=== PATIENT | female | born 2000 | race Two or more races ===

== ENCOUNTER 2020-04-18 01:15 | Emergency (ER) | payer OTHER, MEDICAID ==
[2020-04-18] MEDS ORDERED: ONDANSETRON 4 MG/2 ML VIAL IVP STA (02:38)
[2020-04-18] MEDS ORDERED: SODIUM CHLORIDE 0.9% 1,000 ML IV STA (02:38)
[2020-04-18 03:08] LABS: MUDS CUTOFF CONCENTRATIONS CUTOFF CONC BELOW:
[2020-04-18 03:11] LABS: BILIRUBIN,URINE NEGATIVE (NEGATIVE); GLUCOSE, URINE (UA) NEGATIVE (NEGATIVE); KETONES,URINE (UA) NEGATIVE (NEGATIVE); LEUKOCYTE ESTERASE, URINE NEGATIVE (NEGATIVE); NITRITE,URINE NEGATIVE (NEGATIVE); OCCULT BLOOD,URINE NEGATIVE (NEGATIVE); PH,URINE 8.5 PH (5.0-7.5); PROTEIN,URINE NEGATIVE (NEGATIVE); UROBILINOGEN,URINE 0.2 (NORMAL) E.U./dL (NORMAL)
[2020-04-18 03:13] LABS: CLARITY,URINE CLEAR (CLEAR)
[2020-04-18 03:23] LABS: AMPHETAMINE SCREEN,URINE NEGATIVE (NEGATIVE); COCAINE SCREEN URINE NEGATIVE (NEGATIVE); METHAMPHETAMINES SCREEN, URINE NEGATIVE (NEGATIVE); OPIATE SCREEN, URINE NEGATIVE (NEGATIVE)
[2020-04-18 03:24] LABS: BENZODIAZEPINES SCREEN, URINE POSITIVE (NEGATIVE); METHADONE SCREEN, URINE NEGATIVE (NEGATIVE); OXYCODONE SCREEN, URINE NEGATIVE (NEGATIVE); PROPOXYPHENE SCREEN, URINE NEGATIVE (NEGATIVE); TRICYCLIC ANTIDEPRESSANT,URINE NEGATIVE (NEGATIVE)
[2020-04-18 03:32] LABS: BASOPHILS % (AUTO) 0.2 %; EOSINOPHILS % (AUTO) 0.3 %; HGB - HEMOGLOBIN 13.5 g/dL (12.0-16.0); LYMPHOCYTES # (AUTO) 0.9 10^3/uL (1.5-3.5); LYMPHOCYTES % (AUTO) 7.9 %; MEAN CORPUSCULAR HEMOGLOBIN 31.7 pg (27.0-31.0); MEAN CORPUSCULAR HGB CONC 33.3 g/dL (32.0-36.0); MEAN CORPUSCULAR VOLUME 95.1 fL (81.0-99.0); MEAN PLATELET VOLUME 10.7 fL (7.9-10.8); MONOCYTES # (AUTO) 0.2 10^3/uL (0.0-1.0); MONOCYTES % (AUTO) 1.4 %; NEUTROPHILS # (AUTO) 10.2 10^3/uL (1.5-6.6); PLT - PLATELET COUNT 471 10^3/uL (130-450); RED BLOOD COUNT 4.26 10^6/uL (4.20-5.40); RED CELL DISTRIBUTION WIDTH 12.4 % (12.0-15.0); WHITE BLOOD COUNT 11.3 x10^3/uL (4.8-10.8)
[2020-04-18] MEDS ORDERED: IOVERSOL 320 100 ML VIAL IVP ONE ×2 (04:09→06:38)
--- NOTE | 2020-04-18 05:21 | ED Physician Documentation ---
History of Present Illness - Stated complaint Stated Complaint: VOMITING - Chief complaint Chief Complaint: Abd Pain - Additonal information Additional information: The patient presents accompanied by her mother. She has a history of cerebral palsy. She is nonverbal. Additionally, she has a history of a feeding tube. This is used on a daily basis. However, today after her father fed her she developed vomiting and was bringing up the tube feed that she had received. Her mother also feels that her abdomen is mildly distended. Her bowel movements have been normal and her last one was yesterday. The stool is nonbloody without tar-like parents. She also has a history of a SCREEN TENDER shunt and seizures. She seizes most days but mom says that these are typically brief. 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 Derm: None - Past Surgical History Past Surgical History: Yes General: Other Ortho: Spine surgery Neuro: SCREEN TENDER shunt - Present Medications Home Medications: Ambulatory Orders Medication Instructions Recorded Confirmed Baclofen 20 gm MC TID 06/14/13 06/14/13 Bisacodyl [Dulcolax] 10 mg 06/14/13 06/14/13 Cholecalciferol (Vitamin D3) 1,000 unit PO DAILY 06/14/13 06/14/13 [Vitamin D] Lamotrigine 150 mg PO BID 06/14/13 04/18/20 Levetiracetam [Keppra] 800 mg PO BID 06/14/13 04/18/20 Magnesium Hydroxide [Milk of 15 ml PO 06/14/13 06/14/13 Magnesia] Pedi Mv No.68/Iron Carbonyl 1 each PO 06/14/13 06/14/13 [Centrum Kids Chew Tab] Calcium Carbonate 1,000 mg GT DAILY 04/18/20 04/18/20 Multivit-Min/Ferrous Gluconate 15 ml PO DAILY 04/18/20 04/18/20 [Centrum Multivit-Mineral Liq] Topiramate [Topamax] 50 mg PO BID 04/18/20 04/18/20 diazePAM [Valium] 3 mg GT BID 04/18/20 04/18/20 - Allergies Allergies/Adverse Reactions: Allergies Allergy/AdvReac Type Severity Reaction Status Date / Time amoxicillin [Amoxicillin] Allergy Intermediate Rash Verified 04/18/20 01:37 polyethylene glycol 3350 * AdvReac Severe distended Verified 04/18/20 01:37 [From Miralax] abd - Social History Does the pt smoke?: No Smoking Status: Never smoker Does the pt drink ETOH?: No Does the pt have substance abuse?: No - Immunizations Immunizations are current?: Yes - POLST Patient has POLST: No PD ED PE NORMAL - Vitals Vital signs reviewed: Yes - HEENT HEENT: Moist mucous membranes - Cardiac Cardiac: RRR, No murmur, No gallop, No rub - Abdomen Abdomen: Soft, No organomegaly, Other (Distention, mild diffuse tenderness, hyperactive bowel sounds. Left abdominal PEG tube in place.) - Free text exam Free text exam: Diffuse upper and lower extremity contractures. Results - Vitals Vitals: Vital Signs - 24 hr 04/18/20 04/18/20 04/18/20 01:34 02:13 02:29 Temperature 36.0 C L 36 C L Heart Rate 96 110 H 96 Respiratory 20 20 20 Rate Blood Pressure 114/78 139/88 H 114/78 O2 Saturation 95 90 L 95 04/18/20 04/18/20 04/18/20 04:01 06:00 07:50 Temperature 36.7 C 36.1 C L Heart Rate 103 H 115 H 112 H Respiratory 18 Rate Blood Pressure 130/88 H 112/53 L 121/81 H O2 Saturation 95 99 96 04/18/20 04/18/20 09:00 10:11 Temperature 36.8 C 36.4 C L Heart Rate 115 H 118 H Respiratory 18 18 Rate Blood Pressure 116/80 114/84 H O2 Saturation 96 97 Oxygen O2 Source Room air - Labs Labs: Laboratory Tests 04/18/20 04/18/20 04/18/20 03:04 03:20 03:20 WBC 11.3 H RBC 4.26 Hgb 13.5 Hct 40.5 MCV 95.1 MCH 31.7 H MCHC 33.3 RDW 12.4 Plt Count 471 H MPV 10.7 Neut # (Auto) 10.2 H Lymph # (Auto) 0.9 L Nobles # (Auto) 0.2 Eos # (Auto) 0.0 Baso # (Auto) 0.0 Absolute Nucleated RBC 0.00 Nucleated RBC % 0.0 Sodium Potassium Chloride Carbon Dioxide Anion Gap BUN Creatinine Estimated GFR (MDRD) Glucose Lactic Acid 1.7 Calcium Total Bilirubin AST ALT Alkaline Phosphatase Total Protein Albumin Globulin Albumin/Globulin Ratio Lipase Serum HCG, Qual Urine Color YELLOW Urine Clarity CLEAR Urine pH 8.5 H Ur Specific Carney 1.010 Urine Protein NEGATIVE Urine Glucose (UA) NEGATIVE Urine Ketones NEGATIVE Urine Occult Blood NEGATIVE Urine Nitrite NEGATIVE Urine Bilirubin NEGATIVE Urine Urobilinogen 0.2 (NORMAL) Ur Leukocyte Esterase NEGATIVE Ur Microscopic Review NOT INDICATED Urine Culture Comments NOT INDICATED Urine Opiates Screen NEGATIVE Ur Oxycodone Screen NEGATIVE Urine Methadone Screen NEGATIVE Ur Propoxyphene Screen NEGATIVE Ur Barbiturates Screen NEGATIVE Ur Tricyclics Screen NEGATIVE Ur Phencyclidine Scrn NEGATIVE Ur Amphetamine Screen NEGATIVE U Methamphetamines Scrn NEGATIVE U Benzodiazepines Scrn POSITIVE H Urine Cocaine Screen NEGATIVE U Cannabinoids Screen NEGATIVE 04/18/20 04/18/20 06:51 06:51 WBC RBC Hgb Hct MCV MCH MCHC RDW Plt Count MPV Neut # (Auto) Lymph # (Auto) Nobles # (Auto) Eos # (Auto) Baso # (Auto) Absolute Nucleated RBC Nucleated RBC % Sodium 137 Potassium 4.5 Chloride 110 Carbon Dioxide 16 L Anion Gap 11.0 BUN 7 Creatinine 0.4 Estimated GFR (MDRD) 203 Glucose 135 H Lactic Acid Calcium 8.4 L Total Bilirubin 1.0 AST 49 H ALT 22 Alkaline Phosphatase 94 Total Protein 7.1 Albumin 3.7 Globulin 3.4 Albumin/Globulin Ratio 1.1 Lipase 19 L Serum HCG, Qual NEGATIVE Urine Color Urine Clarity Urine pH Ur Specific Carney Urine Protein Urine Glucose (UA) Urine Ketones Urine Occult Blood Urine Nitrite Urine Bilirubin Urine Urobilinogen Ur Leukocyte Esterase Ur Microscopic Review Urine Culture Comments Urine Opiates Screen Ur Oxycodone Screen Urine Methadone Screen Ur Propoxyphene Screen Ur Barbiturates Screen Ur Tricyclics Screen Ur Phencyclidine Scrn Ur Amphetamine Screen U Methamphetamines Scrn U Benzodiazepines Scrn Urine Cocaine Screen U Cannabinoids Screen PD MEDICAL DECISION MAKING - ED course Complexity details: re-evaluated patient, considered differential, d/w patient ED course: As noted, the patient has a complicated history. Nursing staff were able to obtain IV access but not all of the lab work. Therefore, after discussing the potential benefits and risks with her mother, she provided consent for me to perform a blood draw from the patient's femoral vein. The area was prepped and draped in a sterile fashion and local analgesia was obtained with the use of lidocaine without epinephrine. I then obtained approximately 10 cc of blood and the samples were sent. I discussed her case at change of shift with the oncoming physician, Dr. Titus. We reviewed the patient's history, examination findings and the results of her imaging studies. He will follow-up on the results of her pending blood work and will arrange a disposition for her. Departure - Departure Disposition: 01 Home, Self Care Clinical Impression: SCREEN TENDER (ventriculoperitoneal) shunt status, Seizure Vomiting Qualifiers: Vomiting type: unspecified Vomiting Intractability: non-intractable Nausea presence: unspecified Qualified Code(s): R11.10 - Vomiting, unspecified Aspiration into lower respiratory tract Qualifiers: Encounter type: initial encounter Qualified Code(s): T17.800A - Unspecified foreign body in other parts of respiratory tract causing asphyxiation, initial encounter Condition: Good Instructions: ED Nausea Vomiting Comments: The cause of her episode last night is unclear. No specific cause for vomiting was found. It appears that the SCREEN TENDER shunt is operating normally. There was some aspiration into her lungs but not much. Monitor her for signs of infection such as increased cough or fever and return if that happens. Also return if she starts vomiting again. Discharge Date/Time: 04/18/20 10:23
[2020-04-18] MEDS ORDERED: LIDOCAINE 2% 50 ML MDV SUBQ STA (06:21)
[2020-04-18] MEDS ORDERED: BUFFERED LIDOCAINE 10 ML SYRINGE SUBQ STA (06:28)
[2020-04-18] MEDS ORDERED: LIDOCAINE 2% 50 ML MDV SUBQ SCH (07:00)
--- NOTE | 2020-04-18 07:32 | ED Physician Documentation ---
ED Addendum - Addendum Addendum: 04/18/20 07:31 Patient received in signout from Dr. Vasquez at 7 AM. Briefly this is a 19-year-old woman with history of cerebral palsy, DEPUTY COURT shunt and seizures. Started vomiting yesterday. May have vomited up a dose of her antiseizure medicine. Mom notes longer seizures than normal since this all started. Imaging reviewed. CT of the head, chest, abdomen, only pertinent positive finding is potential aspiration pneumonitis. Some labs still pending on signout. 04/18/20 10:08 Chemistries notable for nonanion gap acidosis, otherwise unremarkable. Mom did a tube feeding and we waited for a while, there was no further vomiting. She seemed to tolerate it well and mom was comfortable taking her home. Diagnoses: 1. Vomiting 2. Aspiration into the lungs 3. Seizure disorder 4. DEPUTY COURT shunt in place Disposition Home with mother, condition stable
[2020-04-18 07:43] LABS: HCG,QUALITATIVE BLOOD NEGATIVE
[2020-04-18 07:44] LABS: ALBUMIN 3.7 g/dL (3.2-5.5); ALBUMIN/GLOBULIN RATIO 1.1 (1.0-2.2); CALCIUM 8.4 mg/dL (8.5-10.3); CREATININE 0.4 mg/dL (0.4-1.0); TOTAL PROTEIN 7.1 g/dL (6.7-8.2)
[2020-04-18 10:11] VITALS: BP 114/84
--- NOTE | 2020-04-18 13:36 | CT Report ---
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 For r adiation dose reduction, the following was used: automated exposure control, adjustment of mA and/or kV according to patient size. COMPARISON: Correlation is made with the accompanying chest and abdomen and pelvis CT examinations, 04/18/2020. FINDINGS: Image quality: Excellent. CSF spaces: There is a left frontal approach ventriculostomy shunt catheter seen, with the tip seen n ear the midline of the ventricles. The ventricles are enlarged. 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 No midline shift. No intracranial masses or hemorrhage. Gusman-white matter interface is nor mal. Skull and face: Right-sided craniectomy changes are seen. Calvarium and visualized facial bones othe rwise appear intact, without suspicious lesions. Sinuses: Visualized sinuses and mastoids are clear. IMPRESSION: Enlarged lateral ventricles. Although shunt dysfunction is possible, underlying ex vacuo dilatation i s considered to be more likely. Please note that no prior head CTs are available for review at this t devi of this dictation and it is not known what the patient's baseline state is. If clinically appropriate, please consider a short-term follow-up noncontrasted CT examination. There is a left frontal approach ventriculostomy catheter seen, with the tip seen along the midline o f the lateral ventricles. Extensive remote appearing infarctions are seen involving both posterior cerebral hemispheres. Note: No significant discrepancy from the preliminary report. Reviewed by: Rafael Muir MD on 04/18/2020 12:34 PM KD Approved by: Rafael Muir MD on 04/18/2020 12:34 PM KD Station ID: [id number]
--- NOTE | 2020-04-18 13:41 | CT Report ---
PROCEDURE: Abdomen/Pelvis W INDICATIONS: vomiting vp clinical shunt CONTRAST: IV CONTRAST: Optiray 320 ml: 70 PO CONTRAST: *NO PO CONTRAST TECHNIQUE: After the administration of nonionic IV contrast, 5 mm thick sections acquired from the diaphragms to the symphysis. 5 mm thick coronal and sagittal reformats were acquired. For radiation dose reducti on, the following was used: automated exposure control, adjustment of mA and/or kV according to gladys ent size. COMPARISON: Correlation is made with the accompanying head CT and chest CT, 04/18/2020 FINDINGS: Image quality: There is artifact associated with the metallic hardware. ABDOMEN: Lung bases: Dependent consolidations are seen. Heart size is normal. Solid organs: Liver and spleen are normal in size and enhancement. Gallbladder wall does not appear thickened. Biliary system is non dilated. Pancreas enhances normally. No adrenal nodules. Kidn eys demonstrate normal size and enhancement, without hydronephrosis. Peritoneum and bowel: A percutaneous gastrostomy tube is seen. Bowel loops demonstrate normal wall t hickness and caliber. No free air. Mild to moderate free fluid is seen collecting within the right lower quadrant of the abdomen. Nodes and vessels: No retroperitoneal or mesenteric adenopathy by size criteria. Aorta and inferior vena cava are normal in size. Miscellaneous: No ventral hernias. There is a ventriculostomy catheter tube seen, with the tip coil ed on the left side and terminating within the left upper quadrant, near the left kidney, as on serie s 4 image 24. No abnormality of the tube can be seen. No tami kink or discontinuity can be seen. PELVIS: Genitourinary: Bladder wall thickness is normal. An IUD is seen at the expected location. Miscellaneous: No inguinal hernias or adenopathy. Bones: No suspicious bony lesions. No vertebral body compression fractures. Extensive spinal fixat ion hardware is seen. There is moderate levoconvex thoracolumbar scoliosis. IMPRESSION: Ventriculostomy peritoneal shunt catheter tubing is seen, with the tip within the left upper quadrant of the abdomen. No tami abnormality of the tube can be seen. There is mild to moderate free fluid seen collected within the right lower quadrant of the abdomen. Incidental note is made of: Extensive spinal fixation hardware Levoconvex scoliosis Gastrostomy IUD Note: No significant discrepancy from the preliminary report. Reviewed by: Rafael Muir MD on 04/18/2020 12:39 PM KD Approved by: Rafael Muir MD on 04/18/2020 12:39 PM [facility] Station ID: [id number]
--- NOTE | 2020-04-18 13:44 | CT Report ---
PROCEDURE: CHEST W INDICATIONS: vomiting TEST ARCHITECT shunt CONTRAST: IV CONTRAST: Optiray 320 ml: 70 PO CONTRAST: *NO PO CONTRAST TECHNIQUE: After the administration of intravenous contrast, 5 mm thick sections acquired from the pulmonary api sonia to the posterior costophrenic angles. 7 mm thick coronal MIP reformats were acquired. For radia tion dose reduction, the following was used: automated exposure control, adjustment of mA and/or kV according to patient size. COMPARISON: Correlation is made with the accompanying head CT and abdomen and pelvis CT, 04/18/2020. FINDINGS: Image quality: Excellent. Lungs and pleura: Dependent consolidation can be seen. An azygos lobe is incidentally noted. No pleur al effusions or pneumothorax. Central and peripheral airways are patent and normal in caliber. Mediastinum: Heart size is normal. No pericardial effusion. No mediastinal or hilar adenopathy by size criteria. Thoracic aorta and central pulmonary arteries are normal in size. Esophagus is elsie l in caliber. No hiatal hernia. Bones and chest wall: Ventriculoperitoneal shunt catheter tubing is seen anteriorly and on the left. No discontinuities of the tubing can be seen. Extensive spinal fixation hardware is seen. Levoconvex scoliosis is seen. No suspicious bony lesions. No vertebral body compression fractures. No axillary or supraclavicular adenopathy by size criteri a. Thyroid gland demonstrates no significant CT abnormality. Abdomen: Visualized upper abdominal solid organs appear normal. Upper abdominal bowel loops are nor mal in caliber. IMPRESSION: Dependent consolidation of the lungs can be seen. Bilateral dependent infiltrates are suspected. Aleman ant, differential diagnosis would also include atelectasis. Please correlate with clinical status. No abnormality of the TEST ARCHITECT shunt tubing can be seen. Incidental note is made of: Extensive spinal fixation hardware Levoconvex scoliosis Azygos lobe Note: No significant discrepancy from the preliminary report. Reviewed by: Rafael Muir MD on 04/18/2020 12:43 PM KD Approved by: Rafael Muir MD on 04/18/2020 12:43 PM [facility] Station ID: [id number]
--- NOTE | 2020-04-19 12:57 | ED Physician Documentation ---
ED Addendum - Addendum Addendum: 04/19/20 12:56 Blood culture noted, I spoke with mom. The patient is doing very well today, "back to normal." No fevers. At this point given 1 of 2 blood cultures positive for gram-positive cocci and no fever it is likely a contaminant and mom is comfortable watching her at home. Understands the need to return immediately if worsening or if she runs a fever. Otherwise we will follow the culture.
== END 2020-04-18 10:23 | disposition home or self-care (01) ==
LOC: ED 01:15
DX: R11.10 Vomiting, unspecified (principal); T17.820A Food in other parts of respiratory tract causing asphyxiation, initial encounter; X58.XXXA Exposure to other specified factors, initial encounter; E87.2 Acidosis; G80.9 Cerebral palsy, unspecified; G40.909 Epilepsy, unspecified, not intractable, without status epilepticus; Z98.2 Presence of cerebrospinal fluid drainage device; Z93.1 Gastrostomy status
CPT/HCPCS: 36415; 51701; 70450; 71260; 74177; 80053; 80306; 81003; 83605; 83690; 84703; 85025; 87040; 87077; 96374; 99281; 99284; Q9967; 81001; 87086

== ENCOUNTER 2022-11-18 17:03 | Emergency (ER) | payer MEDICAID, OTHER ==
[2022-11-18 17:37] LABS: BASOPHILS % (AUTO) 0.2 %; HCT - HEMATOCRIT 49.9 % (37.0-47.0); HGB - HEMOGLOBIN 17.3 g/dL (12.0-16.0); LYMPHOCYTES # (AUTO) 1.4 10^3/uL (1.5-3.5); LYMPHOCYTES % (AUTO) 7.5 %; MEAN CORPUSCULAR HEMOGLOBIN 32.3 pg (27.0-31.0); MEAN CORPUSCULAR HGB CONC 34.7 g/dL (32.0-36.0); MEAN CORPUSCULAR VOLUME 93.3 fL (81.0-99.0); MEAN PLATELET VOLUME 10.4 fL (7.9-10.8); MONOCYTES % (AUTO) 5.1 %; NEUTROPHILS # (AUTO) 16.3 10^3/uL (1.5-6.6); NEUTROPHILS % (AUTO) 86.9 %; PLT - PLATELET COUNT 386 10^3/uL (130-450); RED BLOOD COUNT 5.35 10^6/uL (4.20-5.40); RED CELL DISTRIBUTION WIDTH 11.4 % (12.0-15.0); WHITE BLOOD COUNT 18.7 x10^3/uL (4.8-10.8)
[2022-11-18 17:50] LABS: ALBUMIN 4.1 g/dL (3.2-5.5); ALBUMIN/GLOBULIN RATIO 0.9 (1.0-2.2); BILIRUBIN,TOTAL 0.6 mg/dL (0.2-1.0); CALCIUM 9.4 mg/dL (8.5-10.3); CREATININE 0.6 mg/dL (0.4-1.0); POTASSIUM 3.9 mmol/L (3.5-5.0); TOTAL PROTEIN 8.5 g/dL (6.7-8.2)
[2022-11-18] MEDS ORDERED: ONDANSETRON 4 MG/2 ML VIAL IVP STA (17:51)
[2022-11-18] MEDS ORDERED: SODIUM CHLORIDE 0.9% 1,000 ML IV STA (17:51)
--- NOTE | 2022-11-18 17:51 | ED Physician Documentation ---
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 The patient has vomited her tube feeds since yesterday evening. She has done this in the past and they typically switch over to Pedialyte for a day or 2 and she improved but she is not even tolerating Pedialyte today. She does not appear to be in any pain, has not had a fever or chills, and has remained at baseline mentation and activity. She has not had any diarrhea. She last urinated around 2 AM, no other urination today. No known sick contacts, no atypical p.o. intake. 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 Derm: None Other Past Medical History: Cerebral palsy, METAL TECHNICIAN shunt - Past Surgical History Past Surgical History: Yes General: Other Ortho: Spine surgery Neuro: METAL TECHNICIAN shunt - Present Medications Home Medications: Ambulatory Orders Medication Instructions Recorded Confirmed Baclofen 20 gm MC TID 06/14/13 06/14/13 Bisacodyl [Dulcolax] 10 mg 06/14/13 06/14/13 Cholecalciferol (Vitamin D3) 1,000 unit PO DAILY 06/14/13 06/14/13 [Vitamin D] Lamotrigine 150 mg PO BID 06/14/13 04/18/20 Levetiracetam [Keppra] 800 mg PO BID 06/14/13 04/18/20 Magnesium Hydroxide [Milk of 15 ml PO 06/14/13 06/14/13 Magnesia] Pedi Mv No.68/Iron Carbonyl 1 each PO 06/14/13 06/14/13 [Centrum Kids Chew Tab] Calcium Carbonate 1,000 mg GT DAILY 04/18/20 04/18/20 Multivit-Min/Ferrous Gluconate 15 ml PO DAILY 04/18/20 04/18/20 [Centrum Multivit-Mineral Liq] Topiramate [Topamax] 50 mg PO BID 04/18/20 04/18/20 diazePAM [Valium] 3 mg GT BID 04/18/20 04/18/20 Ondansetron Odt [Zofran] 4 mg TL Q6H PRN #20 tablet 11/18/22 Tamsulosin [Flomax] 0.4 mg PO DAILY #30 cap 11/18/22 - Allergies Allergies/Adverse Reactions: Allergies Allergy/AdvReac Type Severity Reaction Status Date / Time amoxicillin [Amoxicillin] Allergy Intermediate Rash Verified 11/18/22 17:14 polyethylene glycol 3350 * AdvReac Severe distended Verified 11/18/22 17:14 [From Miralax] abd - Social History Does the pt smoke?: No Smoking Status: Never smoker Does the pt drink ETOH?: No Does the pt have substance abuse?: No - Immunizations Immunizations are current?: Yes - POLST Patient has POLST: No PD ED PE NORMAL - Vitals Vital signs reviewed: Yes - General General: No acute distress, Well developed/nourished, Other (Patient nonverbal but is smiling, does not appear toxic or in distress.) - HEENT HEENT: Moist mucous membranes, Pharynx benign - Neck Neck: Supple, no meningeal sign, No JVD - Cardiac Cardiac: RRR, No murmur, No gallop, No rub - Respiratory Respiratory: No respiratory distress, Clear bilaterally - Abdomen Abdomen: Normal bowel sounds, Soft, Non tender, Non distended - Derm Derm: Normal color, Warm and dry, No rash Results - Vitals Vitals: Vital Signs - 24 hr 11/18/22 17:11 Temperature 36.2 C L Heart Rate 108 H Respiratory 24 Rate Blood Pressure 135/72 H O2 Saturation 95 Oxygen O2 Source Room air - Labs Labs: Laboratory Tests 11/18/22 11/18/22 11/18/22 17:32 17:32 18:31 WBC 18.7 H RBC 5.35 Hgb 17.3 H Hct 49.9 H MCV 93.3 MCH 32.3 H MCHC 34.7 RDW 11.4 L Plt Count 386 MPV 10.4 Neut # (Auto) 16.3 H Lymph # (Auto) 1.4 L Kimble # (Auto) 1.0 Eos # (Auto) 0.0 Baso # (Auto) 0.0 Absolute Nucleated RBC 0.00 Nucleated RBC % 0.0 Sodium 136 Potassium 3.9 Chloride 100 L Carbon Dioxide 21 Anion Gap 15.0 H BUN 9 Creatinine 0.6 Estimated GFR (MDRD) 124 Glucose 116 H Calcium 9.4 Total Bilirubin 0.6 AST 27 ALT 34 Alkaline Phosphatase 103 Total Protein 8.5 H Albumin 4.1 Globulin 4.4 H Albumin/Globulin Ratio 0.9 L Lipase 26 Urine Color YELLOW Urine Clarity CLEAR Urine pH 7.0 Ur Specific Castine 1.015 Urine Protein TRACE Urine Glucose (UA) NEGATIVE Urine Ketones 15 H Urine Occult Blood TRACE-INTA Urine Nitrite NEGATIVE Urine Bilirubin NEGATIVE Urine Urobilinogen 0.2 (NORMAL) Ur Leukocyte Esterase NEGATIVE Ur Microscopic Review NOT INDICATED Urine Culture Comments NOT INDICATED Urine HCG, Qual NEGATIVE - Rads (name of study) No standard instances Relevant Findings:: Final report received PD Medical Decision Making - ED course Complexity details: reviewed results, re-evaluated patient, considered differential, d/w patient, d/w family ED course: 21-year-old female with past medical history as above presenting with mom, who is a nurse, due to nausea and vomiting as described in HPI. The patient is stable on physical exam, she is nonverbal and able to communicate any pain but appears comfortable, and has not vomited since she arrived to the ER. I did obtain labs to evaluate for possible signs of infection, UTI, dehydration, or electrolyte abnormalities. She had a leukocytosis of 18.6 per labs otherwise stable and urinalysis negative for signs of infection. Given leukocytosis and patient's inability to communicate pain, I did recommend that we obtain a CT scan. CT scan shows possible stone versus phlebolith in the ureter causing some hydronephrosis. She has no signs of urinary tract infection however so this can be Treated supportively with NSAIDs, antiemetics and I will give Flomax as well. I discussed findings with mom and recommended supportive measures and if she is having ongoing symptoms next week to follow-up with urology. If any point time she develops a fever or worsening symptoms, she was advised to return to the ER.Patient had missed her Keppra today because she was not tolerating p.o. therefore she was given a gram of IV Keppra here and hopefully will be able to tolerate her Keppra at home with as needed Zofran. Departure - Departure Disposition: 01 Home, Self Care Clinical Impression: Ureteral stone with hydronephrosis Condition: Good Instructions: ED Stone Renal W Colic Follow-Up: Piedad Grossman MD [Physician No Access] - Prescriptions: Tamsulosin [Flomax] 0.4 mg PO DAILY #30 cap Ondansetron Odt [Zofran] 4 mg TL Q6H PRN #20 tablet PRN Reason: Nausea / Vomiting Comments: Ivana has a Possible ureteral stone. This may pass on its own. We will treat supportively with oral fluids, and I will give some nausea medicine as well as a medication called Flomax. If she is having ongoing symptoms in the next week, I recommend that you follow-up with the urologist. If she develops a fever or other new concerns, return to the ER. DoseWe did give her a 1 g of Keppra as she has not been keeping her oral Keppra down. She can resume her regular scheduled dose.
[2022-11-18 18:38] LABS: BILIRUBIN,URINE NEGATIVE (NEGATIVE); GLUCOSE, URINE (UA) NEGATIVE (NEGATIVE); KETONES,URINE (UA) 15 mg/dL (NEGATIVE); LEUKOCYTE ESTERASE, URINE NEGATIVE (NEGATIVE); NITRITE,URINE NEGATIVE (NEGATIVE); OCCULT BLOOD,URINE TRACE-INTA (NEGATIVE); PROTEIN,URINE TRACE mg/dL (NEGATIVE); UROBILINOGEN,URINE 0.2 (NORMAL) E.U./dL (NORMAL)
[2022-11-18] MEDS ORDERED: iohexoL-300 100 ML VIAL ONE (18:42)
[2022-11-18 18:45] LABS: CLARITY,URINE CLEAR (CLEAR); HCG UR QUAL NEGATIVE
[2022-11-18] MEDS ORDERED: iohexoL-300 100 ML VIAL IVP ONE (19:08)
--- NOTE | 2022-11-18 19:34 | CT Report ---
PROCEDURE: ABDOMEN/PELVIS W INDICATIONS: vomiting, pain. has TESTER SOUND shunt/cerebral palsy CONTRAST: 90ML OMNI 300 TECHNIQUE: After the administration of intravenous contrast, 5 mm thick sections acquired from the diaphragms to the symphysis. 5 mm thick coronal and sagittal reformats were acquired. For radiation dose reducti on, the following was used: automated exposure control, adjustment of mA and/or kV according to gladys ent size. COMPARISON: CT abdomen pelvis 04/18/2020 FINDINGS: Visualized lung bases: No pleural effusion. Probable atelectasis at the lung bases Liver and biliary tree: No suspect focal hepatic lesion. No biliary ductal dilation. Gallbladder: No radiopaque cholelithiasis. Spleen: Unremarkable. Pancreas: Unremarkable. Adrenal glands: Unremarkable. Kidneys and ureters: Moderate right hydronephrosis with delayed right renal enhancement. Several nono bstructing right renal stones likely present. Etiology of obstruction is not definitive but may be at the right UVJ where a 6 mm calcification is present, indeterminate for distal ureteral stone versus phlebolith. Gastrointestinal tract: No bowel obstruction. Percutaneous gastrostomy tube present. Peritoneal cavity: No free air or substantial free fluid. Partially imaged tubing likely ventricular shunt catheter. Bladder: Unremarkable. Pelvic organs: An IUD is present. Vasculature: No abdominal aortic aneurysm. Musculoskeletal: Extensive spinal fusion hardware present as before IMPRESSION: Moderate right hydronephrosis. Etiology is suspected to be a 6 mm stone at the right UVJ, however dir ect visualization of the ureter is challenging. A phlebolith could appear similarly. Correlation with the location/laterality of patient pain may be helpful. Reviewed by: Janes Leija MD on 11/18/2022 7:33 PM PDT Approved by: Janes Leija MD on 11/18/2022 7:33 PM PDT Station ID: [id number]
[2022-11-18] MEDS ORDERED: levETIRAcetam INJ 1,000 MG in SODIUM CHLORIDE 0.9% 100ML 100 ML IV STA (19:57)
[2022-11-18 20:25] VITALS: BP 148/105
== END 2022-11-18 20:43 | disposition home or self-care (01) ==
LOC: ED 17:03
DX: N13.2 Hydronephrosis with renal and ureteral calculous obstruction (principal); G80.9 Cerebral palsy, unspecified; Z98.2 Presence of cerebrospinal fluid drainage device; Z79.899 Other long term (current) drug therapy
CPT/HCPCS: 36415; 74177; 80053; 81003; 81025; 83690; 85025; 96374; 96375; 99284; Q9967; 81001; 87086

== ENCOUNTER 2024-10-18 13:02 | Inpatient (IN) ==
--- NOTE | 2024-10-18 13:11 | ED Physician Documentation ---
PD HPI DYSPNEA Stated complaint Stated Complaint: HYPOXIA Chief complaint Chief Complaint: Resp History obtained from History obtained from: Patient, Family (mother) and EMS History of Present Illness Timing - onset: How many minutes ago (30) and Today Timing - onset during: Rest Timing - details: Abrupt onset (the patient reportedly vomited then had trouble breathing. She has difficulty with airway protection due to underlying medical/developmental conditions. Apparent aspiration and had sats abruptly in 70-80%, usually 95% range. ) and Still present Inciting event(s): FB / choking (vomiting with apparent aspiration. No recent URI symptoms. ) Improved by: O2 Associated symptoms: Wheezing Similar symptoms before: Has not had sx before Meds/Allgy Home Medications Ambulatory Orders Medication Instructions Recorded Confirmed bisacodyl 10 mg rectal suppository 10 mg KS Q OTHER DAY constipation 06/14/13 10/18/24 (Dulcolax (bisacodyl)) cholecalciferol (vitamin D3) 25 1,000 unit feeding tube DAILY 06/14/13 10/18/24 mcg (1,000 unit) capsule lamotrigine 150 mg tablet 150 mg feeding tube BID 06/14/13 10/18/24 levetiracetam 100 mg/mL oral 800 mg feeding tube BID 06/14/13 10/18/24 solution (Keppra) magnesium hydroxide 400 mg/5 mL 10 ml feeding tube BID 06/14/13 10/18/24 oral suspension (Milk of Magnesia) calcium carbonate 1,000 mg feeding tube Q OTHER DAY 04/18/20 10/18/24 vlklpdvt-byxe-aqpsrlf gluconate 9 15 ml feeding tube DAILY 04/18/20 10/18/24 mg iron/15 mL (15 mL) oral liquid (Centrum) baclofen 20 mg tablet 20 mg feeding tube TID 10/18/24 10/18/24 clobazam 2.5 mg/mL oral suspension 20 mg feeding tube QAM 10/18/24 10/18/24 clobazam 2.5 mg/mL oral suspension 40 mg feeding tube QPM 10/18/24 10/18/24 simethicone 40 mg/0.6 mL oral 125 mg feeding tube PRN PRN 10/18/24 10/18/24 drops,suspension abdominal distention Allergies Allergies Allergy/AdvReac Type Severity Reaction Status Date / Time amoxicillin (Amoxicillin) Allergy Intermediate Rash Verified 11/18/22 17:14 polyethylene glycol 3350 * AdvReac Severe distended Verified 11/18/22 17:14 (From Miralax) abd [facility] Active Problems All Active Problems (Updated 10/18/24 @ 19:22 by Odin Aquino DNP) TBI (traumatic brain injury) (Acute) Acute hypoxic respiratory failure (Acute) Aspiration pneumonia (Acute) Hypoxia (Acute) Social History Social History Smoking Status: Never smoker Living Condition: With family Relationship: Parent Do you feel safe in your home environment?: Yes Suffered physical, verbal, emotional, or financial abuse?: No History of Abuse: No Are you sexually active?: No POLST Patient has POLST: No Exam Exam Vital Signs: Vital Signs x48h Pulse Resp BP Pulse Ox O2 Flow Rate 10/18/24 19:00 115 H 24 167/90 H 93 5 10/18/24 17:21 117 H 22 174/118 H 90 L 6 10/18/24 15:43 124 H 24 135/93 H 93 5 10/18/24 15:18 124 H 24 8 10/18/24 14:26 105 H 24 91 L 5 Constitutional abnormal general appearance (contractures of extremities. Very small muscle mass on extremities. ) (frail appearing) and abnormal body habitus (thin) and (underweight) frail, contractures, small body size. HENMT oropharynx normal Respiratory wheezing noted (expiratory wheezes) and rales noted (base) Cardiovascular normal heart rate noted and regular rhythm noted Gastrointestinal abdomen soft to palpation and nondistended Skin skin color normal general hirsuitism. Results Vitals Vitals: Vital Signs - 24 hr 10/18/24 13:09 10/18/24 13:12 10/18/24 13:23 Temperature 35.1 C L Temperature Source Temporal Artery Scan Pulse Rate 98 93 Respiratory Rate 28 H 36 H Blood Pressure 101/69 O2 Saturation 93 Oxygen Delivery Method Non-Rebreather O2 Source Non-rebreather mask neb If not protocol: Oxygen Flow, liters/minute 15 15 Pain Intensity 0 10/18/24 14:26 10/18/24 15:18 10/18/24 15:43 Temperature Temperature Source Pulse Rate 105 H 124 H 124 H Respiratory Rate 24 24 24 Blood Pressure 135/93 H O2 Saturation 91 L 93 Oxygen Delivery Method O2 Source Nasal cannula nebulizer Nasal cannula If not protocol: Oxygen Flow, liters/minute 5 8 5 Pain Intensity 10/18/24 17:21 10/18/24 19:00 Temperature Temperature Source Pulse Rate 117 H 115 H Respiratory Rate 22 24 Blood Pressure 174/118 H 167/90 H O2 Saturation 90 L 93 Oxygen Delivery Method O2 Source Nasal cannula Nasal cannula If not protocol: Oxygen Flow, liters/minute 6 5 Pain Intensity 0 Oxygen O2 Source Nasal cannula Labs Labs: Laboratory Tests 10/18/24 10/18/24 14:26 17:26 WBC 4.7 L RBC 5.03 Hgb 16.9 H Hct 50.3 H MCV 100.0 H MCH 33.6 H MCHC 33.6 RDW 12.1 Plt Count 276 MPV 10.7 Neut # (Auto) Not Reportable Lymph # (Auto) Not Reportable Hanson # (Auto) Not Reportable Eos # (Auto) Not Reportable Baso # (Auto) Not Reportable Absolute Nucleated RBC Not Reportable Total Counted 100 Band Neuts % (Manual) 41 H Abnorm Lymph % (Manual) 0 Nucleated RBC % Not Reportable Neutrophils # (Manual) 3.5 Lymphocytes # (Manual) 0.9 L Monocytes # (Manual) 0.1 Eosinophils # (Manual) 0.1 Basophils # (Manual) 0.0 Differential Comment MANUAL DIFFERENTIAL Manual Slide Review Indicated Platelet Estimate NORMAL (130-450,000) Platelet Morphology NORMAL APPEARANCE RBC Morph Micro Appear NORMAL APPEARANCE Sodium 137 Potassium 3.6 Chloride 99 L Carbon Dioxide 29 Anion Gap 9.0 BUN 5 L Creatinine 0.4 L Estimated GFR (MDRD) 194 Glucose 102 Calcium 9.9 Total Bilirubin 0.5 AST 19 ALT 36 Alkaline Phosphatase 131 H Total Protein 8.0 Albumin 4.3 Globulin 3.7 Albumin/Globulin Ratio 1.2 Lipase 15 Nasal Adenovirus (PCR) NOT DETECTED Nasal B. parapertussis DNA (PCR) NOT DETECTED Nasal Coronavir 229E PCR NOT DETECTED Nasal Coronavir HKU1 PCR NOT DETECTED Nasal Coronavir NL63 PCR NOT DETECTED Nasal Coronavir OC43 PCR NOT DETECTED Nasal Enterovir/Rhinovir PCR NOT DETECTED Nasal Influenza B PCR NOT DETECTED Nasal Influenza A PCR NOT DETECTED Nasal Parainfluen 1 PCR NOT DETECTED Nasal Parainfluen 2 PCR NOT DETECTED Nasal Parainfluen 3 PCR NOT DETECTED Nasal Parainfluen 4 PCR NOT DETECTED Nasal RSV (PCR) NOT DETECTED Nasal B.pertussis DNA PCR NOT DETECTED Nasal C.pneumoniae (PCR) NOT DETECTED Lázaro Human Metapneumo PCR NOT DETECTED Nasal M.pneumoniae (PCR) NOT DETECTED Nasal SARS-CoV-2 (PCR) NOT DETECTED Rads (name of study) chest: Relevant Findings:: Final report received and EMP independent interpretation of test Interpretation: FINDINGS: Surgical changes and devices: Extensive fixation of the spine from the T1 level inferiorly.. Lungs and pleura: Chronic deformity of the left hemithorax. Suspect bilateral consolidation. Mediastinum: Mediastinal contours appear normal. Heart size is normal. Bones and chest wall: No suspicious bony lesions. Overlying soft tissues appear unremarkable. IMPRESSION: Suspect bilateral pneumonia. Reviewed by: Gunner Dobbs MD on 10/18/2024 4:06 PM PDT PD Medical Decision Making ED course Complexity details: considered differential (likely sudden aspiration pneumonitis. ) and d/w family (Patient without recent URI symptoms, with onset of dyspnea and hypozia after vomiting and apparent aspiration. Cleared some moderately with oropharyngeal suctions and neb treatment by RT twice. More attentive with eyes opening and some interaction (pt nonverbal at baseline). Still sats in upper 80s%) ED course: The patient is nonverbal with chronic disability. Patient's mother states the child had an apparent emesis and then was having trouble breathing and choking type symptoms. Concern for aspiration. There was some work of breathing and decreased mentation and oxygenation level was noted to be low as mom does have an oximeter at home. EMS was called. En route the patient was given supplemental oxygen. She is DNR/DNI and affirmed by the mother. The patient is having less work of breathing en route and on arrival here. There is congested sounds bilaterally. No material is seen in the upper oropharynx. Some congested sounds lower. Respiratory therapy did provide some deep suctioning which got quite a bit of junk out and that seemed to clear the breathing. She was given nebulizer treatments x 2 and is being more alert. At this point she is on just a nasal cannula at a couple of liters and running about 92%. Will see how she does with clearing up a little bit longer and can try another nebulizer and perhaps some more suctioning and see if she maintains without oxygen. If so at that point the mom would be comfortable taking her back home. the patient had not had any recent respiratory infections or illness prior to this. Discharge Plan Discharge Patient Disposition: 65 [facility] DC/Xfer Condition: Stable Clinical Impression: Hypoxia, Aspiration pneumonia Interventions: ED Admission Assessment Last Done: 10/18/24 20:18
[2024-10-18] MEDS: ALBUTEROL NEB 2.5 MG/3 ML INH STA ×2 (13:23→15:18)
[2024-10-18 14:33] LABS: BASOPHILS % (AUTO) 0.4 %; EOSINOPHILS % (AUTO) 0.2 %; HCT - HEMATOCRIT 50.3 % (37.0-47.0); HGB - HEMOGLOBIN 16.9 g/dL (12.0-16.0); LYMPHOCYTES % (AUTO) 18.2 %; MEAN CORPUSCULAR HEMOGLOBIN 33.6 pg (27.0-31.0); MEAN CORPUSCULAR HGB CONC 33.6 g/dL (32.0-36.0); MEAN PLATELET VOLUME 10.7 fL (7.9-10.8); MONOCYTES % (AUTO) 1.7 %; NEUTROPHILS % (AUTO) 79.5 %; PLT - PLATELET COUNT 276 10^3/uL (130-450); RED BLOOD COUNT 5.03 10^6/uL (4.20-5.40); RED CELL DISTRIBUTION WIDTH 12.1 % (12.0-15.0); WHITE BLOOD COUNT 4.7 x10^3/uL (4.8-10.8)
[2024-10-18 14:50] LABS: SLIDE REVIEW? Indicated
[2024-10-18 14:54] LABS: ALBUMIN 4.3 g/dL (3.2-5.5); ALBUMIN/GLOBULIN RATIO 1.2 (1.0-2.2); BILIRUBIN,TOTAL 0.5 mg/dL (0.2-1.0); CALCIUM 9.9 mg/dL (8.5-10.3); CREATININE 0.4 mg/dL (0.6-1.3); POTASSIUM 3.6 mmol/L (3.5-4.5)
[2024-10-18 15:08] LABS: ABNORMAL LYMPHS % (MANUAL) 0 %
[2024-10-18 15:31] LABS: BAND NEUTROPHILS % (MANUAL) 41 %; EOSINOPHILS # (MANUAL) 0.1 10^3/uL (0-0.7); LYMPHOCYTES # (MANUAL) 0.9 10^3/uL (1.5-3.5); LYMPHOCYTES % (MANUAL) 20 %; MONOCYTES # (MANUAL) 0.1 10^3/uL (0.0-1.0); NEUTROPHILS # (MANUAL) 3.5 10^3/uL (1.5-6.6)
[2024-10-18 15:32] LABS: DIFFERENTIAL COMMENT MANUAL DIFFERENTIAL; PLATELET ESTIMATE, MANUAL NORMAL (130-450,000) (NORMAL); PLATELET MORPHOLOGY NORMAL APPEARANCE (NORMAL); RBC MORPHOLOGY (MULTIPLE) NORMAL APPEARANCE (NORMAL)
[2024-10-18] MEDS: LACTATED RINGERS 1,000 ML IV STA (15:38)
--- NOTE | 2024-10-18 16:08 | XRAY Report ---
PROCEDURE: XR Chest 1V INDICATIONS: dyspnea, aspiration TECHNIQUE: One view of the chest was acquired. COMPARISON: CT chest with contrast dated 04/08/2020. FINDINGS: Surgical changes and devices: Extensive fixation of the spine from the T1 level inferiorly.. Lungs and pleura: Chronic deformity of the left hemithorax. Suspect bilateral consolidation. Mediastinum: Mediastinal contours appear normal. Heart size is normal. Bones and chest wall: No suspicious bony lesions. Overlying soft tissues appear unremarkable. IMPRESSION: Suspect bilateral pneumonia. Reviewed by: Gunner Dobbs MD on 10/18/2024 4:06 PM PDT Approved by: Gunner Dobbs MD on 10/18/2024 4:06 PM PDT Station ID: [id number]
[2024-10-18] MEDS: CLINDAMYCIN 150 MG CAPSULE PO STA (16:54)
--- NOTE | 2024-10-18 17:19 | ED Physician Documentation ---
ED Addendum Addendum Addendum: 24-year-old female with a history of TBI, G-tube fed. No history of lung issues but sounds like she has had potential aspiration from vomiting causing likely aspiration pneumonia. Given Rocephin and azithromycin IV. Attempted several nebulizer treatments and tried to wean her off oxygen for about 5 hours in the emergency department. Tried to trial her off of oxygen and she was still down to about 84%. Chest x-ray shows bilateral pneumonia. Restarted back on oxygen. Discussed the case with the hospitalist for observation who accepts. This document was made in part using voice recognition software. While efforts are made to proofread this document, sound alike and grammatical errors may occur. Discharge Plan Discharge Patient Disposition: 66 [facility] DC/Xfer Condition: Stable Clinical Impression: Hypoxia Aspiration pneumonia Qualifiers: Aspiration pneumonia type: unspecified Laterality: unspecified laterality Lung location: unspecified part of lung Qualified Code(s): J69.0 - Pneumonitis due to inhalation of food and vomit Prescriptions: No Action levetiracetam [Keppra] 100 MG/1 ML solution 800 mg PO BID Patient Comments: feeding tube lamotrigine 150 MG tablet 150 mg PO BID magnesium hydroxide [Milk of Magnesia] 400 MG/5 ML suspension 15 ml PO Patient Comments: 10mls at night time cholecalciferol (vitamin D3) 1,000 UNIT capsule 1,000 unit PO DAILY pedi multivitamin no 68-iron [Centrum Kids] 1 EACH tablet,chewable 1 ea PO bisacodyl [Dulcolax (bisacodyl)] 10 MG suppository 10 mg Patient Comments: every 3rd day baclofen (bulk) 5 GM powder 20 g miscellaneous TID diazepam 5 MG tablet 3 mg G-tube BID topiramate [Topamax] 50 MG tablet 50 mg PO BID ummkthro-tpv-vgdwcee gluconate [Centrum] 9 MG/15 ML liquid 15 ml PO DAILY calcium carbonate 500 MG tablet 1,000 mg G-tube DAILY tamsulosin 0.4 MG capsule 0.4 mg PO DAILY Qty: 30 0RF ondansetron 4 MG tablet,disintegrating 4 mg translingual Q6H PRN (Reason: Nausea / Vomiting) Qty: 20 0RF Print Language: Czech Stand Alone Forms: PCP List
[2024-10-18] MEDS: cefTRIAXone 1 GM VIAL IVP STA (17:24)
[2024-10-18] MEDS: AZITHROMYCIN INJ 500 MG in SODIUM CHLORIDE 0.9% 250 ML IV STA (17:31)
[2024-10-18 18:23] LABS: B. PARAPERTUSSIS- RESP PCR PAN NOT DETECTED; B. PERTUSSIS- RESP PCR PANEL NOT DETECTED; C. PNEUMONIAE- RESP PCR PANEL NOT DETECTED; CORONAVIRUS 229E-RESP PCR NOT DETECTED; CORONAVIRUS HKU1-RESP PCR NOT DETECTED; CORONAVIRUS NL63-RESP PCR NOT DETECTED; CORONAVIRUS OC43-RESP PCR NOT DETECTED; HUMAN METAPNEUMOVIRUS NOT DETECTED; INFLUENZA A- RESP PCR PANEL NOT DETECTED; INFLUENZA B - RESP PCR PANEL NOT DETECTED; M. PNEUMONIAE- RESP PCR PANEL NOT DETECTED; PARAINFLUENZA VIRUS 1 NOT DETECTED; PARAINFLUENZA VIRUS 2 NOT DETECTED; PARAINFLUENZA VIRUS 4 NOT DETECTED; RHINOVIRUS/ENTEROVIRUS NOT DETECTED; RSV- RESP PCR PANEL NOT DETECTED; SARS-CoV-2 -RESP PCR PANEL NOT DETECTED
--- NOTE | 2024-10-18 19:24 | HISTORY & PHYSICAL EXAMINATION ---
Chief Complaint Chief Complaint Chief Complaint: Aspiration History of Present Illness Admitted From Admitted From:: Home with parents History Obtained From History obtained from: Mother at bedside Exam Limitations: Patient is nonverbal from TBI History of Present Illness HPI Comment/Other: 24-year-old female with history of TBI from fall at age 1 who is reliant on PEG tube feedings presents after aspiration event. Mother at bedside states that she will have episodes of nausea and vomiting, which resolved spontaneously after they switched from tube feeding to Pedialyte for short time. She had 1 episode of this, And afterwards mother noticed that she sounded like she had aspirated. She placed a pulse ox on her and found her to be hypoxic. In the ER, chest x-ray was performed which shows bilateral pneumonia. She was given Rocephin, azithromycin, clindamycin. Hospitalist was contacted for admission for acute hypoxic respiratory failure secondary to pneumonia Meds/Allgy Home Medications Ambulatory Orders Medication Instructions Recorded Confirmed bisacodyl 10 mg rectal suppository 10 mg TX Q OTHER DAY constipation 06/14/13 10/18/24 (Dulcolax (bisacodyl)) cholecalciferol (vitamin D3) 25 1,000 unit feeding tube DAILY 06/14/13 10/18/24 mcg (1,000 unit) capsule lamotrigine 150 mg tablet 150 mg feeding tube BID 06/14/13 10/18/24 levetiracetam 100 mg/mL oral 800 mg feeding tube BID 06/14/13 10/18/24 solution (Keppra) magnesium hydroxide 400 mg/5 mL 10 ml feeding tube BID 06/14/13 10/18/24 oral suspension (Milk of Magnesia) calcium carbonate 1,000 mg feeding tube Q OTHER DAY 04/18/20 10/18/24 yzrcfiqx-raog-vfguvnz gluconate 9 15 ml feeding tube DAILY 04/18/20 10/18/24 mg iron/15 mL (15 mL) oral liquid (Centrum) baclofen 20 mg tablet 20 mg feeding tube TID 10/18/24 10/18/24 clobazam 2.5 mg/mL oral suspension 20 mg feeding tube QAM 10/18/24 10/18/24 clobazam 2.5 mg/mL oral suspension 40 mg feeding tube QPM 10/18/24 10/18/24 simethicone 40 mg/0.6 mL oral 125 mg feeding tube PRN PRN 10/18/24 10/18/24 drops,suspension abdominal distention Allergies Allergies Allergy/AdvReac Type Severity Reaction Status Date / Time amoxicillin (Amoxicillin) Allergy Intermediate Rash Verified 11/18/22 17:14 polyethylene glycol 3350 * AdvReac Severe distended Verified 11/18/22 17:14 (From Miralax) abd PFSH Active Problems All Active Problems (Updated 10/18/24 @ 19:22 by Odin Aquino DNP) TBI (traumatic brain injury) (Acute) Acute hypoxic respiratory failure (Acute) Aspiration pneumonia (Acute) Hypoxia (Acute) Social History Social History Smoking Status: Never smoker Living Condition: With family Relationship: Parent Do you feel safe in your home environment?: Yes Suffered physical, verbal, emotional, or financial abuse?: No History of Abuse: No Are you sexually active?: No POLST Patient has POLST: No Review of Systems Family reported nausea and vomiting, stated that she sounded like she was gurgling and that is why they brought her in Status of ROS: unobtainable due to mental status Exam Exam Vital Signs: Vital Signs x48h Temp Pulse Resp BP Pulse Ox O2 Flow Rate 10/18/24 17:21 117 H 22 174/118 H 90 L 6 10/18/24 15:43 124 H 24 135/93 H 93 5 10/18/24 15:18 124 H 24 8 10/18/24 14:26 105 H 24 91 L 5 10/18/24 13:23 93 36 H 10/18/24 13:12 15 10/18/24 13:09 35.1 C L 98 28 H 101/69 93 15 Constitutional Chronically ill-appearing female, developmentally delayed HENMT head/scalp atraumatic Eyes PERRL Neck/C-Spine visual inspection normal Lymph no lymphadenopathy noted Chest inspection of chest normal Respiratory breath sounds equal bilaterally Rhonchorous breath sounds throughout Cardiovascular heart rate abnormal (tachycardic) and peripheral pulses 2+ throughout Gastrointestinal abdomen soft to palpation G-tube in place Extremities Severely contracted Neurology Non interactive with interview, Developmentally delayed, total care patient at baseline Psychiatry Not interactive with interview Conclusion/Plan Problem List (1) Acute hypoxic respiratory failure: Plan: Secondary to aspiration pneumonia, treat as below (2) Aspiration pneumonia: Plan: Aspirated on vomited tube feeds earlier today Antibiotic coverage with 1 g Rocephin daily, 500 azithromycin daily, Flagyl 500 mg 3 times daily N.p.o. Aspiration precautions If she experiences any more nausea/vomiting, will need to check residual on G- tube Qualifiers: Aspiration pneumonia type: unspecified Laterality: unspecified laterality Lung location: unspecified part of lung Qualified Code(s): J69.0 - Pneumonitis due to inhalation of food and vomit (3) TBI (traumatic brain injury): Plan: TBI since age of 1 after fall She is total care patient, reliant on tube feeding Dietitian consulted for tube feed management Plan Admit inpatient med floor DNR/DNI Her mother is her surrogate decision-maker Lab Results Lab results reviewed: Yes 10/18/24 14:26 10/18/24 14:26 Diagnostic Imaging Results Diagnostic Imaging Results: positive Final report reviewed Diagnostic Imaging Results Comments: CXR as above Core Measures Anticipated LOS I expect patient to be DC'd or transferred within 96 hours.: Yes DVT/VTE - Prophylaxis VTE/DVT Prophylaxis med ordered at admit?: Yes
--- OUTSIDE RECORDS SUMMARY | 2024-10-18 19:32 | EXTERNAL MEDICAL SUMMARY RPT | Continuity of Care Document ---
Author Organization [facility] Address [address] [address] Phone Results/Labs test date facility value unit notes Result panel 1 ABNORMAL LYMPHS % (MANUAL) 2024-10-18 14:26 [facility] 0 % (missing) BASOPHILS # (MANUAL) 2024-10-18 14:26 [facility] 0.0 10 3/ul (missing) EOSINOPHILS # (MANUAL) 2024-10-18 14:26 [facility] 0.1 10 3/ul (missing) MONOCYTES # (MANUAL) 2024-10-18 14:26 [facility] 0.1 10 3/ul (missing) CREATININE 2024-10-18 14:26 [facility] 0.4 mg/dl As of December 2022 testing method has changed, this may include reference ranges. BILIRUBIN,TOTAL 2024-10-18 14: [facility] 0.5 mg /dl As of December 2022 testing method has changed, this may include reference ranges. LYMPHOCYTES # (MANUAL) 2024-10-18 14:26 [facility] 0.9 10 3/ul (missing) ALBUMIN/GLOBULIN RATIO 2024-10-18 14:26 [facility] 1.2 (missing) (missing) MEAN PLATELET VOLUME 2024-10-18 14:26 [facility] 10.7 fl (missing) TOTAL CELLS COUNTED 2024-10-18 14:26 [facility] 100 (missing) (missing) MEAN CORPUSCULAR VOLUME 2024-10-18 14:26 [facility] 100. 0 fl (missing) GLUCOSE 2024-10-18 14:26 [facility] 102 mg/dl As of December 2022 testing method has changed, this may include reference ranges. RED CELL DISTRIBUTION WIDTH 2024-10-18 14:26 [facility] 12.1 % (missing) ALKALINE PHOSPHATASE 2024-10-18 14:26 [facility] 131 iu/l As of December 2022 testing method has changed, this may include reference ranges. SODIUM 2024-10-18 14:26 [facility] 137 mmol/l (missing) LIPASE 2024-10-18 14:26 [facility] 15 u/l As of December 2022 testing method has changed, this may include reference ranges. HGB - HEMOGLOBIN 2024-10-18 14:26 [facility] 16.9 g /dl (missing) AST ASPARTATE AMINOTRANSFERASE 2024-10-18 14:26 [facility] 19 iu/l As of December 2022 testing method has changed, this may include reference ranges. GFR - MDRD 2024-10-18 14:26 [facility] 194 (hannah martinez) Social History date description facility
[2024-10-18] MEDS ORDERED: ONDANSETRON 4 MG/2 ML VIAL IVP PRN (20:34)
[2024-10-18] MEDS ORDERED: SODIUM CHLORIDE FLUSH 0.9% 10 ML SYRINGE IVP PRN (20:34)
[2024-10-18] MEDS ORDERED: BISACODYL 10 MG SUPP PR SCH (20:34)
[2024-10-18] MEDS ORDERED: ACETAMINOPHEN 325 MG TABLET PO PRN (20:34)
[2024-10-18] MEDS: LACTATED RINGERS 1,000 ML IV SCH (21:45)
[2024-10-18] MEDS: BACLOFEN 10 MG TABLET PO SCH (21:46)
[2024-10-18] MEDS: LAMOTRIGINE 150 MG FT SCH (22:06)
[2024-10-18] MEDS: levETIRAcetam 100 MG/ML 473ML BOTTLE FT SCH (22:06)
[2024-10-18] MEDS: CLOBAZAM 2.5 MG/ML FT SCH (22:07)
[2024-10-18] MEDS: MAGNESIUM HYDROXIDE 2,400 MG/30 ML UDC FT SCH (22:07)
[2024-10-19] MEDS: SODIUM CHLORIDE FLUSH 0.9% 10 ML SYRINGE IVP SCH (00:54)
[2024-10-19 06:44] LABS: BASOPHILS % (AUTO) 0.7 %; EOSINOPHILS % (AUTO) 0.5 %; HCT - HEMATOCRIT 37.7 % (37.0-47.0); HGB - HEMOGLOBIN 12.5 g/dL (12.0-16.0); LYMPHOCYTES % (AUTO) 12.4 %; MEAN CORPUSCULAR HEMOGLOBIN 33.4 pg (27.0-31.0); MEAN CORPUSCULAR HGB CONC 33.2 g/dL (32.0-36.0); MEAN CORPUSCULAR VOLUME 100.8 fL (81.0-99.0); MEAN PLATELET VOLUME 11.2 fL (7.9-10.8); MONOCYTES % (AUTO) 9.1 %; NEUTROPHILS % (AUTO) 77.2 %; PLT - PLATELET COUNT 236 10^3/uL (130-450); RED BLOOD COUNT 3.74 10^6/uL (4.20-5.40); RED CELL DISTRIBUTION WIDTH 12.3 % (12.0-15.0); WHITE BLOOD COUNT 8.5 x10^3/uL (4.8-10.8)
[2024-10-19 06:48] LABS: SLIDE REVIEW? Indicated
[2024-10-19 07:08] LABS: CALCIUM 8.7 mg/dL (8.5-10.3); CREATININE 0.4 mg/dL (0.6-1.3); POTASSIUM 3.9 mmol/L (3.5-4.5)
[2024-10-19 07:43] LABS: ABNORMAL LYMPHS % (MANUAL) 1 %; BAND NEUTROPHILS % (MANUAL) 30 %; LYMPHOCYTES % (MANUAL) 23 %; METAMYELOCYTES % (MANUAL) 1 %; MONOCYTES # (MANUAL) 0.1 10^3/uL (0.0-1.0); NEUTROPHILS # (MANUAL) 6.3 10^3/uL (1.5-6.6)
[2024-10-19 07:49] LABS: DIFFERENTIAL COMMENT MANUAL DIFFERENTIAL; PLATELET ESTIMATE, MANUAL NORMAL (130-450,000) (NORMAL); PLATELET MORPHOLOGY NORMAL APPEARANCE (NORMAL); RBC MORPHOLOGY (MULTIPLE) 1+ MACROCYTOSIS (NORMAL); WBC MORPHOLOGY (MULTIPLE) NORMAL APPEARANCE (NORMAL)
[2024-10-19] MEDS: levETIRAcetam 500 MG/5 ML UDC PO SCH (09:51)
[2024-10-19] MEDS: ENOXAPARIN 40 MG/0.4 ML SYRINGE SUBQ SCH (09:52)
[2024-10-19] MEDS: CLOBAZAM PEG SCH ×2 (09:52→21:14)
[2024-10-19] MEDS: cefTRIAXone 1 GM VIAL IVP SCH (09:52)
[2024-10-19] MEDS: CHOLECALCIFEROL 25 MCG TABLET FT SCH (09:53)
[2024-10-19] MEDS: metroNIDAZOLE 250 MG TABLET PO SCH (09:53)
[2024-10-19] MEDS: lamoTRIgine 100 MG TABLET PO SCH (09:53)
[2024-10-19] MEDS: AZITHROMYCIN 250 MG TABLET PO SCH (09:53)
[2024-10-19] MEDS: MULTIVITAMIN W/IRON, MINERALS 15 ML GT SCH (10:11)
--- NOTE | 2024-10-19 11:34 | PHARMACY PROGRESS NOTE ---
Best Possible Medication History Admit Date and Time: 10/18/241906 Home Medications Medication Instructions Recorded Confirmed Type bisacodyl 10 mg rectal suppository 10 mg UT Q OTHER DAY constipation 06/14/13 10/18/24 History (Dulcolax (bisacodyl)) cholecalciferol (vitamin D3) 25 1,000 unit feeding tube DAILY 06/14/13 10/18/24 History mcg (1,000 unit) capsule lamotrigine 150 mg tablet 150 mg feeding tube BID 06/14/13 10/18/24 History levetiracetam 100 mg/mL oral 800 mg feeding tube BID 06/14/13 10/18/24 History solution (Keppra) magnesium hydroxide 400 mg/5 mL 10 ml feeding tube BID 06/14/13 10/18/24 History oral suspension (Milk of Magnesia) calcium carbonate 1,000 mg feeding tube Q OTHER DAY 04/18/20 10/18/24 History lcjhzvjk-lxat-tyxkfiu gluconate 9 15 ml feeding tube DAILY 04/18/20 10/18/24 History mg iron/15 mL (15 mL) oral liquid (Centrum) baclofen 20 mg tablet 20 mg feeding tube TID 10/18/24 10/18/24 History clobazam 2.5 mg/mL oral suspension 20 mg feeding tube QAM 10/18/24 10/18/24 History clobazam 2.5 mg/mL oral suspension 40 mg feeding tube QPM 10/18/24 10/18/24 History simethicone 40 mg/0.6 mL oral 125 mg feeding tube PRN PRN 10/18/24 10/18/24 History drops,suspension abdominal distention Processed by: Pharmacy Medications reviewed in ED?: Yes Medication History completed: Yes Patient Interview: Pt unable to participate Secondary Source(s): Written medication list, Other family member, Pharmacy records and Insurance records [facility] Statement: As the person ultimately responsible for medication therapy, providers are able to order a medication from an existing home medication list in [facility] via the "Reconcile Routine" prior to Confirmation of that medication by phlebotomy support tech. Such practice is discouraged except when the physician, in their clinical judgment, deems that a medical need exists for a medication without regard to previous use.
--- NOTE | 2024-10-19 15:38 | PROVIDER PROGRESS NOTE ---
Subjective Prog Note Date Prog Note Date: 10/19/24 Subjective Pt reports feeling: Improved Current Medications Current Medications Current Medications: Current Medications Generic Name Dose Route Start Last Admin Trade Name Freq PRN Reason Stop Dose Admin Acetaminophen 650 mg 10/18/24 20:34 Acetaminophen 325 Mg Tablet PO Q4HR PRN Pain or Fever > 38C (100.4F) Azithromycin 500 mg 10/19/24 09:00 10/19/24 09:53 Azithromycin 250 Mg Tablet PO 500 mg DAILY HIREN Administration Baclofen 20 mg 10/18/24 22:00 10/19/24 14:01 Baclofen 10 Mg Tablet PO 20 mg TID HIREN Administration Bisacodyl 10 mg 10/18/24 20:34 Bisacodyl 10 Mg Supp SD Q OTHER DAY HIREN Calcium Carbonate/Glycine 1,000 mg 10/18/24 20:34 Calcium Carb (Oyster Shell) 500 Mg Tablet PO Q OTHER DAY HIREN Ceftriaxone Sodium 1 gm 10/19/24 09:00 10/19/24 09:52 Ceftriaxone 1 Gm Vial IVP 1 gm DAILY HIREN Administration Cholecalciferol 25 mcg 10/19/24 09:00 10/19/24 09:53 Cholecalciferol 25 Mcg Tablet FT 25 mcg DAILY HIREN Administration Enoxaparin Sodium 40 mg 10/19/24 09:00 10/19/24 09:52 Enoxaparin 40 Mg/0.4 Ml Syringe SUBQ 40 mg DAILY HIREN Administration Lactated Ringer's 1,000 mls @ 100 mls/hr 10/18/24 20:34 10/19/24 08:00 Lr IV 100 mls/hr .Q10H HIREN Administration Lamotrigine 150 mg 10/19/24 09:00 10/19/24 09:53 Lamotrigine 100 Mg Tablet PO 150 mg BID HIREN Administration Levetiracetam 800 mg 10/19/24 09:00 10/19/24 09:51 Levetiracetam 500 Mg/5 Ml Udc PO 800 mg BID HIREN Administration Magnesium Hydroxide 800 mg 10/19/24 21:00 Magnesium Hydroxide 2,400 Mg/30 Ml Udc FT BID HIREN Metronidazole 500 mg 10/19/24 08:00 10/19/24 12:30 Metronidazole 250 Mg Tablet PO 500 mg TIDWM HIREN Administration Multivitamins/Folic Acid/Vitamin C 15 ml 10/19/24 09:00 10/19/24 10:11 Multivitamin W/Iron, Minerals 15 Ml GT 15 ml DAILY HIREN Administration Ondansetron HCl 4 mg 10/18/24 20:34 Ondansetron 4 Mg/2 Ml Vial IVP Q6HR PRN Nausea / Vomiting Clobazam 2.5 Mg/Ml ( 1 each 10/19/24 09:00 10/19/24 09:52 20 Mg/8 Ml Syringe) PEG 1 each Suspension DAILY HIREN Administration Clobazam 2.5 Mg/Ml ( 2 each 10/19/24 21:00 20 Mg/8 Ml) PEG Suspension QPM HIREN Simethicone 125 mg 10/18/24 20:34 Simethicone 40 Mg/0.6 Ml 30 Ml Bottle PEG PRN PRN abdominal distention Sodium Chloride 10 ml 10/18/24 20:34 Sodium Chloride Flush 0.9% 10 Ml Syringe IVP PRN PRN NEEDED PER PROVIDER ORDERS Sodium Chloride 10 ml 10/19/24 01:00 10/19/24 09:54 Sodium Chloride Flush 0.9% 10 Ml Syringe IVP 10 ml 0100,0900,1700 HIREN Administration Objective Vital Signs/Intake & Output Reviewed Vital Signs: Yes Vital Signs: Vital Signs x48h Temp Pulse Resp BP Pulse Ox O2 Flow Rate 10/19/24 12:30 36.4 C L 103 H 22 114/77 91 L 1 10/19/24 08:47 1 Intake & Output: Intake & Output 10/16/24 10/17/24 10/18/24 10/19/24 23:59 23:59 23:59 23:59 Intake Total 1250 / 1250 1000 / 1000 Output Total 0 / 0 Balance 1250 / 1250 1000 / 1000 Weight (kg) 45.8 kg Objective General Appearance: positive No acute distress and Other (Nonverbal, resting comfortably) Eyes Bilateral: positive Normal inspection ENT: positive ENT inspection nml Neck: positive Nml inspection Respiratory: positive Chest non-tender, No respiratory distress and Other (Still with coarse breath sounds) Cardiovascular: positive Regular rate & rhythm Abdomen: positive Non-tender Skin: positive Color nml Extremities: positive Non-tender and Other (Severe contractures throughout) Neurologic/Psychiatric: positive Oriented x3 Lab Results 10/19/24 05:55 10/19/24 05:55 Other Labs: Lab Results x24hrs 10/19/24 10/18/24 Range/Units 05:55 17:26 WBC 8.5 (4.8-10.8) x10^3/uL RBC 3.74 L (4.20-5.40) 10^6/uL Hgb 12.5 (12.0-16.0) g/dL Hct 37.7 (37.0-47.0) % MCV 100.8 H (81.0-99.0) fL MCH 33.4 H (27.0-31.0) pg MCHC 33.2 (32.0-36.0) g/dL RDW 12.3 (12.0-15.0) % Plt Count 236 (130-450) 10^3/uL MPV 11.2 H (7.9-10.8) fL Neut # (Auto) Not Reportable Lymph # (Auto) Not Reportable [place] # (Auto) Not Reportable Eos # (Auto) Not Reportable Baso # (Auto) Not Reportable Absolute Nucleated RBC Not Reportable Total Counted 100 Band Neuts % (Manual) 30 H (0 - 10) % Abnorm Lymph % (Manual) 1 % Metamyelocytes % 1 H ( - 0) % Nucleated RBC % Not Reportable Neutrophils # (Manual) 6.3 (1.5-6.6) 10^3/uL Lymphocytes # (Manual) 2.0 (1.5-3.5) 10^3/uL Monocytes # (Manual) 0.1 (0.0-1.0) 10^3/uL Eosinophils # (Manual) 0.0 (0-0.7) 10^3/uL Basophils # (Manual) 0.0 (0-0.1) 10^3/uL Differential Comment MANUAL DIFFERENTIAL Manual Slide Review Indicated WBC Morphology NORMAL APPEARANCE (NORMAL) Platelet Estimate NORMAL (130-450,000) (NORMAL) Platelet Morphology NORMAL APPEARANCE (NORMAL) RBC Morph Micro Appear 1+ MACROCYTOSIS (NORMAL) Sodium 139 (135-145) mmol/L Potassium 3.9 (3.5-4.5) mmol/L Chloride 104 (101-111) mmol/L Carbon Dioxide 30 (21-32) mmol/L Anion Gap 5.0 L (6-13) BUN 4 L (6-20) mg/dL Creatinine 0.4 L (0.6-1.3) mg/dL Estimated GFR (MDRD) 194 (>89) Glucose 84 (74-104) mg/dL Calcium 8.7 (8.5-10.3) mg/dL Nasal Adenovirus (PCR) NOT DETECTED Nasal B. parapertussis DNA (PCR) NOT DETECTED Nasal Coronavir 229E PCR NOT DETECTED Nasal Coronavir HKU1 PCR NOT DETECTED Nasal Coronavir NL63 PCR NOT DETECTED Nasal Coronavir OC43 PCR NOT DETECTED Nasal Enterovir/Rhinovir PCR NOT DETECTED Nasal Influenza B PCR NOT DETECTED Nasal Influenza A PCR NOT DETECTED Nasal Parainfluen 1 PCR NOT DETECTED Nasal Parainfluen 2 PCR NOT DETECTED Nasal Parainfluen 3 PCR NOT DETECTED Nasal Parainfluen 4 PCR NOT DETECTED Nasal RSV (PCR) NOT DETECTED Nasal B.pertussis DNA PCR NOT DETECTED Nasal C.pneumoniae (PCR) NOT DETECTED Lázaro Human Metapneumo PCR NOT DETECTED Nasal M.pneumoniae (PCR) NOT DETECTED Nasal SARS-CoV-2 (PCR) NOT DETECTED Assessment/Plan Problem List (1) Acute hypoxic respiratory failure: Impression: Secondary to aspiration pneumonia, treat as below On 1 L O2 now (2) Aspiration pneumonia: Impression: Aspirated on vomited tube feeds yesterday Continue antibiotic coverage with Rocephin, azithromycin, Flagyl. N.p.o., tube feedings Aspiration precautions Qualifiers: Aspiration pneumonia type: unspecified Laterality: unspecified laterality Lung location: unspecified part of lung Qualified Code(s): J69.0 - Pneumonitis due to inhalation of food and vomit (3) TBI (traumatic brain injury): Impression: TBI since age of 1 after fall Total care patient, arrived on tube feeding I have written orders to allow the family to continue tube feeds at equivalent to half the rate they have been doing at home. She will receive one half can of her tube feed every 4 hours Dietitian consulted for tube feed management Aspiration precautions with tube feed
[2024-10-19] MEDS: MAGNESIUM HYDROXIDE 2,400 MG/30 ML UDC FT SCH (21:19)
[2024-10-20 04:38] LABS: BASOPHILS % (AUTO) 0.1 %; EOSINOPHILS # (AUTO) 0.1 10^3/uL (0.0-0.7); EOSINOPHILS % (AUTO) 1.1 %; HCT - HEMATOCRIT 35.5 % (37.0-47.0); HGB - HEMOGLOBIN 11.9 g/dL (12.0-16.0); LYMPHOCYTES # (AUTO) 1.9 10^3/uL (1.5-3.5); LYMPHOCYTES % (AUTO) 27.3 %; MEAN CORPUSCULAR HEMOGLOBIN 33.5 pg (27.0-31.0); MEAN CORPUSCULAR HGB CONC 33.5 g/dL (32.0-36.0); MEAN PLATELET VOLUME 10.9 fL (7.9-10.8); MONOCYTES # (AUTO) 0.5 10^3/uL (0.0-1.0); MONOCYTES % (AUTO) 6.9 %; NEUTROPHILS # (AUTO) 4.6 10^3/uL (1.5-6.6); NEUTROPHILS % (AUTO) 64.3 %; PLT - PLATELET COUNT 224 10^3/uL (130-450); RED BLOOD COUNT 3.55 10^6/uL (4.20-5.40); RED CELL DISTRIBUTION WIDTH 12.8 % (12.0-15.0); WHITE BLOOD COUNT 7.1 x10^3/uL (4.8-10.8)
[2024-10-20 04:53] LABS: CALCIUM 8.8 mg/dL (8.5-10.3); CREATININE 0.4 mg/dL (0.6-1.3); POTASSIUM 3.8 mmol/L (3.5-4.5)
--- NOTE | 2024-10-20 13:40 | PROVIDER PROGRESS NOTE ---
Subjective Prog Note Date Prog Note Date: 10/20/24 Subjective Pt reports feeling: Improved Subjective: Patient smiling today Current Medications Current Medications Current Medications: Current Medications Generic Name Dose Route Start Last Admin Trade Name Freq PRN Reason Stop Dose Admin Acetaminophen 650 mg 10/18/24 20:34 Acetaminophen 325 Mg Tablet PO Q4HR PRN Pain or Fever > 38C (100.4F) Azithromycin 500 mg 10/19/24 09:00 10/20/24 09:18 Azithromycin 250 Mg Tablet PO 500 mg DAILY IHREN Administration Baclofen 20 mg 10/18/24 22:00 10/20/24 06:27 Baclofen 10 Mg Tablet PO 20 mg TID HIREN Administration Bisacodyl 10 mg 10/18/24 20:34 Bisacodyl 10 Mg Supp [place] Q OTHER DAY HIREN Calcium Carbonate/Glycine 1,000 mg 10/18/24 20:34 Calcium Carb (Oyster Shell) 500 Mg Tablet PO Q OTHER DAY HIREN Ceftriaxone Sodium 1 gm 10/19/24 09:00 10/20/24 09:16 Ceftriaxone 1 Gm Vial IVP 1 gm DAILY HIREN Administration Cholecalciferol 25 mcg 10/19/24 09:00 10/20/24 09:17 Cholecalciferol 25 Mcg Tablet FT 25 mcg DAILY HIREN Administration Enoxaparin Sodium 40 mg 10/19/24 09:00 10/20/24 09:16 Enoxaparin 40 Mg/0.4 Ml Syringe SUBQ 40 mg DAILY HIREN Administration Lactated Ringer's 1,000 mls @ 100 mls/hr 10/18/24 20:34 10/20/24 03:24 Lr IV 100 mls/hr .Q10H HIREN Administration Lamotrigine 150 mg 10/19/24 09:00 10/20/24 09:17 Lamotrigine 100 Mg Tablet PO 150 mg BID HIREN Administration Levetiracetam 800 mg 10/19/24 09:00 10/20/24 09:26 Levetiracetam 500 Mg/5 Ml Udc PO 800 mg BID HIREN Administration Magnesium Hydroxide 800 mg 10/19/24 21:00 10/20/24 09:26 Magnesium Hydroxide 2,400 Mg/30 Ml Udc FT 800 mg BID HIREN Administration Metronidazole 500 mg 10/19/24 08:00 10/20/24 09:18 Metronidazole 250 Mg Tablet PO 500 mg TIDWM HIREN Administration Multivitamins/Folic Acid/Vitamin C 15 ml 10/19/24 09:00 10/20/24 09:15 Multivitamin W/Iron, Minerals 15 Ml GT 15 ml DAILY HIREN Administration Ondansetron HCl 4 mg 10/18/24 20:34 Ondansetron 4 Mg/2 Ml Vial IVP Q6HR PRN Nausea / Vomiting Clobazam 2.5 Mg/Ml ( 1 each 10/19/24 09:00 10/20/24 09:17 20 Mg/8 Ml Syringe) PEG 1 each Suspension DAILY HIREN Administration Clobazam 2.5 Mg/Ml ( 2 each 10/19/24 21:00 10/19/24 21:14 20 Mg/8 Ml) PEG 2 each Suspension QPM HIREN Administration Simethicone 125 mg 10/18/24 20:34 Simethicone 40 Mg/0.6 Ml 30 Ml Bottle PEG PRN PRN abdominal distention Sodium Chloride 10 ml 10/18/24 20:34 Sodium Chloride Flush 0.9% 10 Ml Syringe IVP PRN PRN NEEDED PER PROVIDER ORDERS Sodium Chloride 10 ml 10/19/24 01:00 10/20/24 09:18 Sodium Chloride Flush 0.9% 10 Ml Syringe IVP 10 ml 0100,0900,1700 HIREN Administration Objective Vital Signs/Intake & Output Reviewed Vital Signs: Yes Vital Signs: Vital Signs x48h Temp Pulse Resp BP Pulse Ox O2 Flow Rate 10/20/24 12:47 36.4 C L 102 H 20 133/89 H 93 1 10/20/24 08:58 1 10/20/24 06:00 93 3 Intake & Output: Intake & Output 10/17/24 10/18/24 10/19/24 10/20/24 23:59 23:59 23:59 23:59 Intake Total 1250 / 1250 1946 993 / 993 Output Total 0 / 0 0 / 0 Balance 1250 / 1250 1946 993 / 993 Weight (kg) 45.8 kg Objective General Appearance: positive No acute distress and Other (Nonverbal, resting comfortably) Eyes Bilateral: positive Normal inspection ENT: positive ENT inspection nml Neck: positive Nml inspection Respiratory: positive Chest non-tender, No respiratory distress and Other (Still with coarse breath sounds) Cardiovascular: positive Regular rate & rhythm Abdomen: positive Non-tender Skin: positive Color nml Extremities: positive Non-tender and Other (Severe contractures throughout) Neurologic/Psychiatric: positive Oriented x3 Lab Results 10/20/24 04:10 10/20/24 04:10 Other Labs: Lab Results x24hrs 10/20/24 Range/Units 04:10 WBC 7.1 (4.8-10.8) x10^3/uL RBC 3.55 L (4.20-5.40) 10^6/uL Hgb 11.9 L (12.0-16.0) g/dL Hct 35.5 L (37.0-47.0) % MCV 100.0 H (81.0-99.0) fL MCH 33.5 H (27.0-31.0) pg MCHC 33.5 (32.0-36.0) g/dL RDW 12.8 (12.0-15.0) % Plt Count 224 (130-450) 10^3/uL MPV 10.9 H (7.9-10.8) fL Neut # (Auto) 4.6 (1.5-6.6) 10^3/uL Lymph # (Auto) 1.9 (1.5-3.5) 10^3/uL [place] # (Auto) 0.5 (0.0-1.0) 10^3/uL Eos # (Auto) 0.1 (0.0-0.7) 10^3/uL Baso # (Auto) 0.0 (0.0-0.1) 10^3/uL Absolute Nucleated RBC 0.00 x10^3/uL Nucleated RBC % 0.0 /100WBC Sodium 138 (135-145) mmol/L Potassium 3.8 (3.5-4.5) mmol/L Chloride 104 (101-111) mmol/L Carbon Dioxide 29 (21-32) mmol/L Anion Gap 5.0 L (6-13) BUN 6 (6-20) mg/dL Creatinine 0.4 L (0.6-1.3) mg/dL Estimated GFR (MDRD) 194 (>89) Glucose 72 L (74-104) mg/dL Calcium 8.8 (8.5-10.3) mg/dL Assessment/Plan Problem List (1) Acute hypoxic respiratory failure: Impression: Secondary to aspiration pneumonia, treat as below On 1 L O2 now 10/20/2024: Oxygen needs of been up and down over the past day. She required deep suctioning last night. She is on 1 L oxygen now. (2) Aspiration pneumonia: Impression: Aspirated on vomited tube feeds yesterday Continue antibiotic coverage with Rocephin, azithromycin, Flagyl. N.p.o., tube feedings Aspiration precautions 10/20/2024: Continuing Rocephin, azithromycin, Flagyl. Today will be the last day of azithromycin Qualifiers: Aspiration pneumonia type: unspecified Laterality: unspecified laterality Lung location: unspecified part of lung Qualified Code(s): J69.0 - Pneumonitis due to inhalation of food and vomit (3) TBI (traumatic brain injury): Impression: TBI since age of 1 after fall Total care patient, arrived on tube feeding I have written orders to allow the family to continue tube feeds at equivalent to half the rate they have been doing at home. She will receive one half can of her tube feed every 4 hours Dietitian consulted for tube feed management Aspiration precautions with tube feed
[2024-10-21 05:03] LABS: BASOPHILS % (AUTO) 0.4 %; EOSINOPHILS # (AUTO) 0.2 10^3/uL (0.0-0.7); EOSINOPHILS % (AUTO) 2.1 %; HCT - HEMATOCRIT 34.7 % (37.0-47.0); HGB - HEMOGLOBIN 11.9 g/dL (12.0-16.0); LYMPHOCYTES # (AUTO) 2.3 10^3/uL (1.5-3.5); LYMPHOCYTES % (AUTO) 32.9 %; MEAN CORPUSCULAR HEMOGLOBIN 34.1 pg (27.0-31.0); MEAN CORPUSCULAR HGB CONC 34.3 g/dL (32.0-36.0); MEAN CORPUSCULAR VOLUME 99.4 fL (81.0-99.0); MEAN PLATELET VOLUME 11.1 fL (7.9-10.8); MONOCYTES # (AUTO) 0.5 10^3/uL (0.0-1.0); MONOCYTES % (AUTO) 7.4 %; NEUTROPHILS % (AUTO) 56.3 %; PLT - PLATELET COUNT 213 10^3/uL (130-450); RED BLOOD COUNT 3.49 10^6/uL (4.20-5.40); RED CELL DISTRIBUTION WIDTH 12.7 % (12.0-15.0)
[2024-10-21 05:25] LABS: CALCIUM 8.8 mg/dL (8.5-10.3); CREATININE 0.3 mg/dL (0.6-1.3); POTASSIUM 3.7 mmol/L (3.5-4.5)
[2024-10-21] MEDS: CALCIUM CARB (OYSTER SHELL) 500 MG TABLET PO SCH (08:20)
[2024-10-21] MEDS: SIMETHICONE 40 MG/0.6 ML 30 ML BOTTLE PEG PRN (08:58)
--- NOTE | 2024-10-21 15:07 | PROVIDER PROGRESS NOTE ---
Subjective Prog Note Date Prog Note Date: 10/21/24 Subjective Pt reports feeling: No change Subjective: Smiled with my approach. Current Medications Current Medications Current Medications: Current Medications Generic Name Dose Route Start Last Admin Trade Name Freq PRN Reason Stop Dose Admin Acetaminophen 650 mg 10/18/24 20:34 Acetaminophen 325 Mg Tablet PO Q4HR PRN Pain or Fever > 38C (100.4F) Baclofen 20 mg 10/18/24 22:00 10/21/24 14:49 Baclofen 10 Mg Tablet PO 20 mg TID HIREN Administration Bisacodyl 10 mg 10/18/24 20:34 Bisacodyl 10 Mg Supp [place] Q OTHER DAY HIREN Calcium Carbonate/Glycine 1,000 mg 10/18/24 20:34 10/21/24 08:20 Calcium Carb (Oyster Shell) 500 Mg Tablet PO 1,000 mg Q OTHER DAY HIREN Administration Ceftriaxone Sodium 1 gm 10/19/24 09:00 10/21/24 08:18 Ceftriaxone 1 Gm Vial IVP 1 gm DAILY HIREN Administration Cholecalciferol 25 mcg 10/19/24 09:00 10/21/24 08:20 Cholecalciferol 25 Mcg Tablet FT 25 mcg DAILY HIREN Administration Enoxaparin Sodium 40 mg 10/19/24 09:00 10/21/24 08:18 Enoxaparin 40 Mg/0.4 Ml Syringe SUBQ 40 mg DAILY HIREN Administration Lactated Ringer's 1,000 mls @ 100 mls/hr 10/18/24 20:34 10/21/24 12:04 Lr IV 100 mls/hr .Q10H HIREN Administration Lamotrigine 150 mg 10/19/24 09:00 10/21/24 08:20 Lamotrigine 100 Mg Tablet PO 150 mg BID HIREN Administration Levetiracetam 800 mg 10/19/24 09:00 10/21/24 08:17 Levetiracetam 500 Mg/5 Ml Udc PO 800 mg BID HIREN Administration Magnesium Hydroxide 800 mg 10/19/24 21:00 10/21/24 08:19 Magnesium Hydroxide 2,400 Mg/30 Ml Udc FT Not Given BID HIREN Metronidazole 500 mg 10/19/24 08:00 10/21/24 12:04 Metronidazole 250 Mg Tablet PO 500 mg TIDWM HIREN Administration Multivitamins/Folic Acid/Vitamin C 15 ml 10/19/24 09:00 10/21/24 08:21 Multivitamin W/Iron, Minerals 15 Ml GT 15 ml DAILY HIREN Administration Ondansetron HCl 4 mg 10/18/24 20:34 Ondansetron 4 Mg/2 Ml Vial IVP Q6HR PRN Nausea / Vomiting Clobazam 2.5 Mg/Ml ( 1 each 10/19/24 09:00 10/21/24 08:21 20 Mg/8 Ml Syringe) PEG 1 each Suspension DAILY HIREN Administration Clobazam 2.5 Mg/Ml ( 2 each 10/19/24 21:00 10/20/24 20:55 20 Mg/8 Ml) PEG 2 each Suspension QPM HIREN Administration Simethicone 125 mg 10/18/24 20:34 10/21/24 08:58 Simethicone 40 Mg/0.6 Ml 30 Ml Bottle PEG 125 mg PRN PRN Administration abdominal distention Sodium Chloride 10 ml 10/18/24 20:34 Sodium Chloride Flush 0.9% 10 Ml Syringe IVP PRN PRN NEEDED PER PROVIDER ORDERS Sodium Chloride 10 ml 10/19/24 01:00 10/21/24 08:22 Sodium Chloride Flush 0.9% 10 Ml Syringe IVP 10 ml 0100,0900,1700 HIREN Administration Objective Vital Signs/Intake & Output Reviewed Vital Signs: Yes Vital Signs: Vital Signs x48h Temp Pulse Resp BP Pulse Ox O2 Flow Rate 10/21/24 08:12 36.5 C 92 20 113/71 92 1 10/21/24 07:30 1 Intake & Output: Intake & Output 10/18/24 10/19/24 10/20/24 10/21/24 23:59 23:59 23:59 23:59 Intake Total 1250 / 1250 1946 / 2094 Output Total 0 / 0 0 / 0 1100 / 1100 Balance 1250 / 1250 1946 995 / 995 Weight (kg) 45.8 kg Objective General Appearance: positive No acute distress and Other (Nonverbal, resting comfortably) Eyes Bilateral: positive Normal inspection ENT: positive ENT inspection nml Neck: positive Nml inspection Respiratory: positive Chest non-tender, No respiratory distress and Other (Coarse breath sounds, improving) Cardiovascular: positive Regular rate & rhythm Abdomen: positive Non-tender Skin: positive Color nml Extremities: positive Non-tender and Other (Severe contractures throughout) Neurologic/Psychiatric: positive Other (Error in charting on previous notes. Patient is nonverbal. Tracks with eyes. Very little extremity movement due to severe contractures) Lab Results 10/21/24 04:23 10/21/24 04:23 Other Labs: Lab Results x24hrs 10/21/24 Range/Units 04:23 WBC 7.0 (4.8-10.8) x10^3/uL RBC 3.49 L (4.20-5.40) 10^6/uL Hgb 11.9 L (12.0-16.0) g/dL Hct 34.7 L (37.0-47.0) % MCV 99.4 H (81.0-99.0) fL MCH 34.1 H (27.0-31.0) pg MCHC 34.3 (32.0-36.0) g/dL RDW 12.7 (12.0-15.0) % Plt Count 213 (130-450) 10^3/uL MPV 11.1 H (7.9-10.8) fL Neut # (Auto) 4.0 (1.5-6.6) 10^3/uL Lymph # (Auto) 2.3 (1.5-3.5) 10^3/uL [place] # (Auto) 0.5 (0.0-1.0) 10^3/uL Eos # (Auto) 0.2 (0.0-0.7) 10^3/uL Baso # (Auto) 0.0 (0.0-0.1) 10^3/uL Absolute Nucleated RBC 0.00 x10^3/uL Nucleated RBC % 0.0 /100WBC Sodium 138 (135-145) mmol/L Potassium 3.7 (3.5-4.5) mmol/L Chloride 107 (101-111) mmol/L Carbon Dioxide 27 (21-32) mmol/L Anion Gap 4.0 L (6-13) BUN 6 (6-20) mg/dL Creatinine 0.3 L (0.6-1.3) mg/dL Estimated GFR (MDRD) 271 (>89) Glucose 73 L (74-104) mg/dL Calcium 8.8 (8.5-10.3) mg/dL Assessment/Plan Problem List (1) Acute hypoxic respiratory failure: Impression: Secondary to aspiration pneumonia, treat as below On 1 L O2 now 10/20/2024: Oxygen needs of been up and down over the past day. She required deep suctioning last night. She is on 1 L oxygen now. 10/21/2024: Nursing has been consistently trying to wean her off of oxygen. She still requires 1 L and desaturates into the mid to upper 80s without oxygen. Continue management of pneumonia as below May need home O2 if this does not improve in the next day (2) Aspiration pneumonia: Impression: Aspirated on vomited tube feeds yesterday Continue antibiotic coverage with Rocephin, azithromycin, Flagyl. N.p.o., tube feedings Aspiration precautions 10/20/2024: Continuing Rocephin, azithromycin, Flagyl. Today will be the last day of azithromycin 10/20/2024: Today is day 4 of Rocephin and Flagyl. Azithromycin has been completed. She has been afebrile, but still requiring supplemental oxygen Qualifiers: Aspiration pneumonia type: unspecified Laterality: unspecified laterality Lung location: unspecified part of lung Qualified Code(s): J69.0 - Pneumonitis due to inhalation of food and vomit (3) TBI (traumatic brain injury): Impression: TBI since age of 1 after fall Total care patient, arrived on tube feeding I have written orders to allow the family to continue tube feeds at equivalent to half the rate they have been doing at home. She will receive one half can of her tube feed every 4 hours Dietitian consulted for tube feed management Aspiration precautions with tube feed
[2024-10-21 22:06] VITALS: O2SAT 94
[2024-10-22 04:40] LABS: BASOPHILS % (AUTO) 0.2 %; EOSINOPHILS # (AUTO) 0.2 10^3/uL (0.0-0.7); EOSINOPHILS % (AUTO) 3.5 %; HCT - HEMATOCRIT 34.9 % (37.0-47.0); HGB - HEMOGLOBIN 12.1 g/dL (12.0-16.0); LYMPHOCYTES # (AUTO) 2.1 10^3/uL (1.5-3.5); MEAN CORPUSCULAR HEMOGLOBIN 34.8 pg (27.0-31.0); MEAN CORPUSCULAR HGB CONC 34.7 g/dL (32.0-36.0); MEAN CORPUSCULAR VOLUME 100.3 fL (81.0-99.0); MEAN PLATELET VOLUME 10.6 fL (7.9-10.8); MONOCYTES # (AUTO) 0.4 10^3/uL (0.0-1.0); MONOCYTES % (AUTO) 5.6 %; NEUTROPHILS # (AUTO) 3.9 10^3/uL (1.5-6.6); NEUTROPHILS % (AUTO) 57.8 %; PLT - PLATELET COUNT 228 10^3/uL (130-450); RED BLOOD COUNT 3.48 10^6/uL (4.20-5.40); RED CELL DISTRIBUTION WIDTH 12.7 % (12.0-15.0); WHITE BLOOD COUNT 6.7 x10^3/uL (4.8-10.8)
[2024-10-22 04:52] LABS: CALCIUM 8.6 mg/dL (8.5-10.3); CREATININE 0.3 mg/dL (0.6-1.3)
[2024-10-22 05:28] LABS: MAGNESIUM 1.5 mg/dL (1.7-2.3)
[2024-10-22] MEDS: MAGNESIUM SULFATE 2 GRAM 2 GM/50 ML BAG IV ONE (10:13)
[2024-10-22 14:07] VITALS: BP 117/86; TEMP 98.2
--- NOTE | 2024-10-22 14:22 | Discharge Summary ---
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 Mother at bedside states that she will have episodes of nausea and vomiting, which resolved spontaneously after they switched from tube feeding to Pedialyte for short time. She had 1 episode of this, And afterwards mother noticed that she sounded like she had aspirated. She placed a pulse ox on her and found her to be hypoxic. In the ER, chest x-ray was performed which shows bilateral pneumonia. She was given Rocephin, azithromycin, clindamycin. Hospitalist was contacted for admission for acute hypoxic respiratory failure secondary to pneumonia HOSPITAL COURSE Hospital Course: She was admitted in the hospital for respiratory failure. Her oxygenation needs have stayed steady at 0 to 2 L. She was started on Zosyn clinda Rocephin, Flagyl, azithromycin. I am sending her home with an additional 2 days of Cefpodoxime and Flagyl. I have resumed her tube feeds. She will follow-up with primary care regarding further management ALLERGIES Allergies Allergy/AdvReac Type Severity Reaction Status Date / Time amoxicillin (Amoxicillin) Allergy Intermediate Rash Verified 11/18/22 17:14 polyethylene glycol 3350 * AdvReac Severe distended Verified 11/18/22 17:14 (From Miralax) abd MEDICATIONS Ambulatory Orders Medication Instructions Recorded Confirmed bisacodyl 10 mg rectal suppository 10 mg [place] Q OTHER DAY constipation 06/14/13 10/18/24 (Dulcolax (bisacodyl)) cholecalciferol (vitamin D3) 25 1,000 unit feeding tube DAILY 06/14/13 10/18/24 mcg (1,000 unit) capsule lamotrigine 150 mg tablet 150 mg feeding tube BID 06/14/13 10/18/24 levetiracetam 100 mg/mL oral 800 mg feeding tube BID 06/14/13 10/18/24 solution (Keppra) magnesium hydroxide 400 mg/5 mL 10 ml feeding tube BID 06/14/13 10/18/24 oral suspension (Milk of Magnesia) calcium carbonate 1,000 mg feeding tube Q OTHER DAY 04/18/20 10/18/24 [id number] gluconate 9 15 ml feeding tube DAILY 04/18/20 10/18/24 mg iron/15 mL (15 mL) oral liquid (Centrum) baclofen 20 mg tablet 20 mg feeding tube TID 10/18/24 10/18/24 clobazam 2.5 mg/mL oral suspension 20 mg feeding tube QAM 10/18/24 10/18/24 clobazam 2.5 mg/mL oral suspension 40 mg feeding tube QPM 10/18/24 10/18/24 simethicone 40 mg/0.6 mL oral 125 mg feeding tube PRN PRN 10/18/24 10/18/24 drops,suspension abdominal distention cefpodoxime 100 mg/5 mL oral 100 mg (5 mL) PO BID 2 days #20 mL 10/22/24 suspension metronidazole 250 mg tablet 500 mg (2 x 250 mg) PO TIDWM 2 10/22/24 days #12 tabs PHYSICAL EXAM AT DISCHARGE Vital Signs: Vital Signs x48h Temp Pulse Resp BP Pulse Ox 10/22/24 14:00 36.8 C 100 18 117/86 94 General Appearance: positive No acute distress and Other (Nonverbal, pleasant. Smiles with approach) Eyes Bilateral: positive Normal inspection ENT: positive ENT inspection nml Respiratory: positive Chest non-tender and Other (Coarse breath sounds, improved from prior) Cardiovascular: positive Regular rate & rhythm Peripheral Pulses: positive 2+ Abdomen: positive Non-tender Skin: positive Color nml Extremities: positive Other (Severe contractures) Neurologic/Psychiatric: positive Other (Nonverbal at baseline. Severely contracted) LABS 10/22/24 04:20 10/22/24 04:20 FOLLOW UP Follow Up: With PCP TIME SPENT Time Spent in Discharge (Minutes): 35 Discharge Plan Discharge Patient Disposition: 01 Home, Self Care Condition: Stable Prescriptions: New metronidazole 250 mg Tablet 500 mg PO TIDWM 2 Days Qty: 12 0RF cefpodoxime 100 mg/5 mL suspension for reconstitution 100 mg PO BID 2 Days Qty: 20 0RF Continued levetiracetam [Keppra] 100 MG/1 ML solution 800 mg feeding tube BID Patient Comments: feeding tube lamotrigine 150 MG tablet 150 mg feeding tube BID magnesium hydroxide [Milk of Magnesia] 400 MG/5 ML suspension 10 ml feeding tube BID Patient Comments: 10mls at night time cholecalciferol (vitamin D3) 1,000 UNIT capsule 1,000 unit feeding tube DAILY bisacodyl [Dulcolax (bisacodyl)] 10 MG suppository 10 mg [place] Q OTHER DAY Patient Comments: every 3rd day Centrum 9 MG/15 ML liquid 15 ml feeding tube DAILY calcium carbonate 500 MG tablet 1,000 mg feeding tube Q OTHER DAY baclofen 20 mg tablet 20 mg feeding tube TID clobazam 2.5 mg/mL suspension 20 mg feeding tube QAM clobazam 2.5 mg/mL suspension 40 mg feeding tube QPM simethicone 40 mg/0.6 mL drops,suspension 125 mg feeding tube PRN PRN (Reason: abdominal distention) Activity Restrictions: Activity as Tolerated Health Concerns: You came into the hospital after aspirating on tube feeding. You were admitted because you needed oxygen. We treated you with IV antibiotics for aspiration pneumonia. We are having difficulty weaning your oxygen off, so you will discharged with home O2 that you will wear while recovering. I am sending you with another 2 days of antibiotics. Please take them as directed until the bottle is empty. Print Language: Occitan Patient Instructions: Pneumonia, Pneumonia Dc Stand Alone Forms: PCP List Follow-up Care: Art Rodriguez MD [Primary Care Provider] -
== END 2024-10-22 16:38 | disposition home or self-care (01) | DRG 177 ==
LOC: ED 13:02 → MS3 19:07
PROVIDERS: ADMIT Nurse Practitioner Acute Care; ATTEND Nurse Practitioner Acute Care
DX: Z20.822 Contact with and (suspected) exposure to COVID-19; Z93.1 Gastrostomy status; J96.01 Acute respiratory failure with hypoxia; Z87.820 Personal history of traumatic brain injury; Z20.828 Contact with and (suspected) exposure to other viral communicable diseases; Z79.899 Other long term (current) drug therapy; J69.0 Pneumonitis due to inhalation of food and vomit; Z20.818 Contact with and (suspected) exposure to other bacterial communicable diseases